=== PATIENT | female | born 1960 | race Caucasian/White ===

== ENCOUNTER → 2018-03-17 11:06 | Outpatient (CLI) | payer OTHER, SELFPAY ==
[2018-03-17 13:05] LABS: T4 Free Direct 1.27 ng/dL (0.76-1.46); Thyroid Stim Hormone (TSH) 0.23 uIU/mL (0.358-3.74)
== END ==
PROVIDERS: Family Provider Internal Medicine; PCP Internal Medicine; Visit Provider Internal Medicine
DX: E03.9 Hypothyroidism, unspecified (principal)
CPT/HCPCS: 36415; 84439; 84443

== ENCOUNTER → 2018-10-13 09:25 | Outpatient (CLI) | payer OTHER, SELFPAY ==
--- NOTE | 2018-10-13 09:32 | RAD_ITS ---
STUDY: X-RAY - RIGHT KNEE REASON FOR EXAM: Female, 58 years old. Chronic pain in both knees, now worsening. No known injury. TECHNIQUE: 4 view(s) of the knee. COMPARISON: None. FINDINGS: There is periarticular spurring of the femoral condyles. There is mild periarticular spurring of the tibial plateaus as well as spurring of the tibial spines. Normal visualized proximal fibula. Degenerative periarticular spurring seen at the apex and base of the patella. There is early cortical spurring at the patellar insertion of the quadriceps tendon. There is no demonstrated destructive osseous lesion or acute fracture. There is mild degenerative narrowing of the medial femorotibial compartment. Normal lateral femorotibial compartment. There is mild to moderate degenerative narrowing of the patellofemoral articulation. Normal proximal tibiofibular articulation. There is no demonstrated joint effusion. The soft tissue structures are unremarkable. RAD/Knee 4 or More Views IMPRESSION: Tricompartmental degenerative arthrosis of the knee, as described. Electronically Signed: Fredrick Ayala MD at 16:03 EST , Service support ,
--- NOTE | 2018-10-13 09:32 | RAD_ITS ---
STUDY: X-RAY - LEFT KNEE REASON FOR EXAM: Female, 58 years old. Pain TECHNIQUE: 4 view(s) of the knee. COMPARISON: None. FINDINGS: Normal visualized distal femur. Normal visualized proximal tibia and fibula. Normal proximal tibiofibular articulation. There is moderate degenerative arthrosis of the medial femorotibial compartment with moderate joint space narrowing. Normal lateral femorotibial compartment. Normal patellofemoral articulation. The soft tissue structures are unremarkable. RAD/Knee 4 or More Views IMPRESSION: Moderate medial compartment osteoarthritis. Electronically Signed: James Gaston MD at 4:28 EST Tel , Service support ,
--- NOTE | 2018-10-13 09:52 | RAD_ITS ---
STUDY: X-RAY - RIGHT TIBIA AND FIBULA REASON FOR EXAM: Female, 58 years old. Right calf pain worsening over last month. No known injury. TECHNIQUE: 2 view(s) of the tibia and fibula were obtained. COMPARISON: None. FINDINGS: There is degenerative periarticular spurring of the lateral tibial plateau and tibial spines. Degenerative particular spurring of the femoral condyles and base of the patella also noted. Normal visualized fibula. There is no demonstrated destructive osseous lesion or acute fracture. There is minor anterior superficial soft tissue swelling at the distal third of the lower leg. RAD/Tibia & Fibula 2 Views IMPRESSION: 1. Tricompartmental degenerative changes of the right knee. No acute osseous abnormality of the right lower leg. 2. Minor anterior superficial soft tissue swelling at the distal third of the lower leg. Electronically Signed: Fredrick Ayala MD at 16:02 EST , Service support ,
[2018-10-13 12:06] LABS: Absolute Lymphocyte Count 2.42 X10^3/ul (0.83-4.51); Absolute Neutrophil Count 2.3 X10^3/uL (2.0-7.7); Basophil# 0.02 X10^3/uL; Basophil% 0.4 % (0-1); Eosinophil# 0.16 X10^3/uL; Eosinophils% 3.1 % (0-5); Hematocrit 43.2 % (37-47); Hemoglobin 14.3 g/dl (12.0-15.0); Lymphocyte # 2.42 X10^3/ul (4.0); Lymphocyte % 46.4 % (19-41); Mean Corp Hgb Conc 33.1 g/gl (32-36); Mean Corpuscular Volume 90.8 fL (81-99); Mean Platelet Vol. 11.1 fl (6.2-12.0); Monocyte# 0.32 X10^3/uL; Monocyte% 6.1 % (0-10); Neutrophil # 2.28 X10^3/uL (2.7-7.7); Neutrophil % 43.8 % (47-70); POSITIVE COUNT NO; POSITIVE DIFFERENTIAL NO; POSITIVE MORPHOLOGY NO; Platelet Count 237 K/mm3 (150-450); RBC Distribution Width CV 13.4 % (11.6-14.6); RBC Distribution Width SD 44.5 fl (35.1-43.9); Red Blood Count 4.76 M/mm3 (4.2-5.4); White Blood Count 5.2 K/mm3 (4.4-11.0)
[2018-10-13 12:35] LABS: Progesterone Level 0.25 ng/mL (See Comment); Vitamin D,25 Hydroxy 27.2 ng/mL (29.95-100.01)
[2018-10-13 17:19] LABS: ALB/GLOB Ratio 0.9 RATIO (0.9-2.4); AST(SGOT) 26 U/L (15-37); Alanine Aminotransfer ALT/SGPT 50 U/L (13-56); Albumin, Serum 3.6 g/dL (3.2-5.0); Alkaline Phosphatase 95 U/L (45-117); Anion Gap 10 (5-15); BUN 19 mg/dL (7-18); BUN/Creat Ratio 32.8 RATIO (10-20); Calcium,Total 8.6 mg/dL (8.5-10.1); Chloride 107 mmol/L (98-107); Creatinine, Serum 0.58 mg/dL (0.55-1.02); EST Glomerular Filtration Rate 113 mL/min (>60); Est Glom Filt Rate - Afr Amer 137 mL/min (>60); Estradiol < 11.0 pg/mL; Globulin 3.9 g/dL (2.2-4.2); Glucose 82 mg/dL (74-106); Protein, Total 7.5 g/dL (6.4-8.2); Sodium Level 142 mmol/L (136-145); T4 Free Direct 1.36 ng/dL (0.76-1.46); Thyroid Stim Hormone (TSH) 0.15 uIU/mL (0.358-3.74)
[2018-10-15 03:05] LABS: DHEA Sulfate 49.2 ug/dL (29.4-220.5); Testosterone Free 0.9 pg/mL (0.0-4.2)
== END ==
PROVIDERS: Family Provider Internal Medicine; PCP Internal Medicine; Referring Provider Internal Medicine; Visit Provider Internal Medicine
DX: E03.9 Hypothyroidism, unspecified (principal); E55.9 Vitamin D deficiency, unspecified; E78.5 Hyperlipidemia, unspecified; R68.82 Decreased libido; M79.604 Pain in right leg; M25.561 Pain in right knee; M25.562 Pain in left knee
CPT/HCPCS: 36415; 73564; 73590; 80053; 80061; 82306; 82533; 82627; 82670; 83695; 83704; 84144; 84402; 84439; 84443; 84481; 85025; 82626

== ENCOUNTER → 2019-01-23 07:55 | Outpatient (CLI) | payer OTHER, SELFPAY ==
[2019-01-23 10:40] LABS: Vitamin D,25 Hydroxy 37.1 ng/mL (29.95-100.01)
[2019-01-23 11:06] LABS: Estradiol < 11.0 pg/mL; Ferritin 52 ng/mL (8-252); Free T3 2.7 pg/mL (2.18-3.98); T4 Free Direct 1.18 ng/dL (0.76-1.46); Thyroid Stim Hormone (TSH) 0.39 uIU/mL (0.358-3.74)
[2019-01-25 12:08] LABS: CHOLESTEROL TOTAL 182 mg/dL (100-199); HDL-C 63 mg/dL (>39); HDL-P TOTAL 40.9 umol/L (>=30.5); SMALL LDL-P 330 nmol/L (<=527); TRIGLYCERIDES 98 mg/dL (0-149)
[2019-01-25 15:42] LABS: INSULIN RESISTANCE SCORE 40 (<=45); LDL SIZE 20.9 nm (>20.5); LDL-C 99 mg/dL (0-99); LDL-P 1063 nmol/L (<1000)
[2019-01-26 17:38] LABS: DHEA Sulfate 48.7 ug/dL (29.4-220.5)
[2019-01-27 15:36] LABS: Anti-Thyroglobulin AB < 1.0 IU/mL (0.0-0.9); T3 Reverse 21.9 ng/dL (9.2-24.1); Thyroglobulin, Serum Qt. 6.7 ng/mL (1.5-38.5); Thyroid Peroxidase AB 17 IU/mL (0-34)
== END ==
PROVIDERS: Family Provider Internal Medicine; PCP Internal Medicine; Referring Provider Internal Medicine; Visit Provider Internal Medicine
DX: E03.9 Hypothyroidism, unspecified (principal); E78.5 Hyperlipidemia, unspecified; E34.9 Endocrine disorder, unspecified; E55.9 Vitamin D deficiency, unspecified
CPT/HCPCS: 36415; 80061; 82306; 82533; 82627; 82670; 82728; 83704; 84144; 84403; 84432; 84439; 84443; 84481; 84482; 86376; 86800; 82626

== ENCOUNTER → 2019-04-25 10:49 | Outpatient (CLI) | payer OTHER, SELFPAY ==
[2019-04-25 12:49] LABS: Free T3 3.4 pg/mL (2.18-3.98); T4 Free Direct 1.43 ng/dL (0.76-1.46); Thyroid Stim Hormone (TSH) 0.22 uIU/mL (0.358-3.74)
== END ==
PROVIDERS: Family Provider Internal Medicine; PCP Internal Medicine; Referring Provider Internal Medicine; Visit Provider Internal Medicine
DX: E03.9 Hypothyroidism, unspecified (principal)
CPT/HCPCS: 36415; 84439; 84443; 84481

== ENCOUNTER → 2019-08-17 13:26 | Outpatient (CLI) | payer OTHER, SELFPAY ==
[2019-08-17 16:14] LABS: T4 Free Direct 1.41 ng/dL (0.76-1.46); Thyroid Stim Hormone (TSH) 1.19 uIU/mL (0.358-3.74)
== END ==
PROVIDERS: Family Provider Internal Medicine; PCP Internal Medicine; Referring Provider Internal Medicine; Visit Provider Internal Medicine
DX: E03.9 Hypothyroidism, unspecified (principal)
CPT/HCPCS: 36415; 84439; 84443

== ENCOUNTER → 2019-12-31 14:27 | Outpatient (CLI) | payer OTHER, SELFPAY ==
[2019-12-31 18:03] LABS: Progesterone Level 9.51 ng/mL (See Comment)
[2019-12-31 18:10] LABS: Estradiol 13.1 pg/mL; T4 Free Direct 1.16 ng/dL (0.76-1.46)
[2020-01-14 14:47] LABS: Free T3 2.6 pg/mL (2.18-3.98)
== END ==
PROVIDERS: PCP Internal Medicine; Referring Provider Specialist; Visit Provider Specialist
DX: N95.1 Menopausal and female climacteric states (principal); R53.81 Other malaise; E03.8 Other specified hypothyroidism
CPT/HCPCS: 36415; 82627; 82670; 84144; 84403; 84439; 84443; 84481; 82626

== ENCOUNTER → 2020-03-18 16:47 | Outpatient (CLI) | payer OTHER, SELFPAY ==
--- NOTE | 2020-03-18 16:49 | CT_ITS ---
STUDY: CT CHEST WITH CONTRAST REASON FOR EXAM: Female, 59 years old. SUPRACLAVICULAR STELLA FULLNESS RIGHT SIDE -- LEFT SIDE ABD PAIN -- HX-HYPOTHYROIDISM RADIATION DOSAGE (If Supplied By Facility): CTDIvol = ( 12.61 ) mGy, DLP = ( 696.90 ) mGycm TECHNIQUE: Transaxial imaging was performed following intravenous administration of IV 100mL Isovue-300. Multiplanar coronal and sagittal images were reformatted. Individualized dose optimization techniques were used for this CT. COMPARISON: None. FINDINGS: There is evidence of bilateral breast implants. Small benign-appearing bilateral axillary lymph nodes. The lungs are normal. There is no demonstrated pleural abnormality. Normal heart and pericardium. Normal mediastinum. Normal hilar regions. Normal enhanced pulmonary arteries. Normal aorta arch and descending thoracic aorta. There are mild degenerative changes of the thoracic spine. There is no demonstrated abnormality of the visualized upper abdomen. CT/Chest WITH Contrast IMPRESSION: Normal enhanced CT Chest examination. Electronically Signed: Andre Ng, at 8:51 EDT , Service support ,
--- NOTE | 2020-03-18 17:01 | CT_ITS ---
STUDY: CT ABDOMEN WITH CONTRAST REASON FOR EXAM: Female, 59 years old. SUPRACLAVICULAR STELLA FULLNESS RIGHT SIDE -- LEFT SIDE ABD PAIN -- HX-HYPOTHYROIDISM RADIATION DOSAGE (If Supplied By Facility): CTDIvol = ( 12.61 ) mGy, DLP = ( 696.90 ) mGycm TECHNIQUE: Transaxial images were obtained post I.V. administration of IV 100mL Isovue-300, and without oral contrast. Sagittal and coronal images were reconstructed. Individualized dose optimization techniques were used for this CT. COMPARISON: None. FINDINGS: The visualized lung bases are unremarkable. The visualized portions of the heart are within normal limits. Normal liver. Normal gallbladder and extrahepatic biliary system. Normal spleen. Normal pancreas. Normal bilateral adrenal glands. Normal right kidney. Normal left kidney. Normal visualized stomach. Normal small intestine. Normal colon. The appendix is visualized and appears normal. Normal abdominal aorta. Normal inferior vena cava. Normal retroperitoneum. Normal abdominal wall. There are mild degenerative changes of the visualized lumbar spine. CT/Abdomen WITH IV Contrast IMPRESSION: No acute abnormality is seen. Electronically Signed: Andre Ng, at 8:50 EDT , Service support ,
[2020-03-18 17:20] LABS: CREATININE FINGERSTICK 0.8 mg/dL (0.55-1.02)
== END ==
PROVIDERS: PCP Internal Medicine; Referring Provider Internal Medicine; Visit Provider Internal Medicine
DX: R22.2 Localized swelling, mass and lump, trunk (principal); R10.9 Unspecified abdominal pain; E03.9 Hypothyroidism, unspecified
CPT/HCPCS: 71260; 74160; Q9967

== ENCOUNTER → 2020-08-28 10:53 | Outpatient (CLI) | payer OTHER, SELFPAY ==
[2020-08-28 13:22] LABS: Progesterone Level 5.38 ng/mL (See Comment)
[2020-08-28 13:40] LABS: Estradiol 50.1 pg/mL
== END ==
PROVIDERS: PCP Internal Medicine; Referring Provider Specialist; Visit Provider Specialist
DX: N95.1 Menopausal and female climacteric states (principal)
CPT/HCPCS: 36415; 82670; 84144; 84403

== ENCOUNTER 2020-09-14 12:59 | Emergency (ER) | payer OTHER, SELFPAY ==
[2020-09-14 13:01] VITALS: BP 135/84; PULSE 77; RESP 17; TEMP 36.1; O2SAT 95; BMI 31.7
--- NOTE | 2020-09-14 13:12 | CT_ITS ---
STUDY: CT CERVICAL SPINE WITHOUT CONTRAST REASON FOR EXAM: Female, 60 years old. WORSENING RT SHOULDER and arm PAIN/HX DDD RADIATION DOSAGE (If Supplied By Facility): CTDIvol = ( 23.52 ) mGy, DLP = ( 494.96 ) mGycm TECHNIQUE: High resolution transaxial imaging was performed without contrast material. Sagittal and coronal images were reconstructed. Individualized dose optimization techniques were used for this CT. COMPARISON: None FINDINGS: No definite acute fracture/dislocation. The cervical junction is intact. C1-C2 articulation is intact. There is reversal of curvature. There is normal alignment. Facet joints are intact at all levels bilaterally. No jumped facets. There is multilevel spondyloarthropathy. Multilevel degenerative disc disease seen. Multilevel loss of disc height. Multilevel posterior marginal osteophytes and disc bulges. Multilevel neural foraminal narrowing. Visualized paraspinal soft tissues and structures are unremarkable. CT/Spine Cervical without Contras IMPRESSION: There is no definite acute fracture/dislocation. Degenerative changes. Electronically Signed: Simone Andre MD at 14:00 EST , Service support ,
--- NOTE | 2020-09-14 13:15 | ED.DCSUM_ITS ---
History of Present Illness Chief Complaint: Upper Extremity Injury Informant: Patient Onset: Days Context: Gradual Onset Timing: Intermittent Current Severity: Moderate Maximum Severity: Severe Narrative: The patient is a 60-year-old female who is otherwise healthy the presents to the emergency department with neck pain and arm pain. Patient states she has a history of degenerative disease in her neck. She has seen pain management in the past. She has had cervical injections. She states that she has never had surgery on her neck. For the past month, she has been having some increasing pain. She did have a local injection of steroid which seemed to help. Over the past week, the pain has worsened. She states today, she had a burning pain from her trapezius down her tricep towards her hand. She has not had weakness. She did take a muscle relaxer, gabapentin, and [place] this morning. By the time she arrived here, she states her pain is better but she is still uncomfortable. She denies any trauma. She denies any chest pain or shortness of breath. Prior similar symptoms: Yes Recent Illness/Hospitalization: No Past Medical History - Allergies and Home Meds Allergies/Adverse Reactions: Allergies No Known Allergies Allergy (Verified 09/14/20 13:00) Primary Care Physician: Loco Dash MD [STAFF PHYSICIAN] - Prior records reviewed: Yes Past Medical History: None Surgical History: noncontributory Smoking Status: Never smoker Review of Systems General: Denies: Chills, Fever, Sweats Eyes: Denies: Visual changes - bilaterally, Diplopia ENT: Denies: Rhinorrhea, Sore throat Cardiovascular: Denies: Chest pain, Palpitations Respiratory: Denies: Dyspnea, Cough, Dyspnea on exertion Gastrointestinal: Denies: Abdominal pain, Nausea, Vomiting, Diarrhea, Melena, Hematochezia Genitourinary: Denies: Dysuria, Hematuria, Frequency Musculoskeletal: Reports: Neck pain. Denies: Back pain, Extremity Pain Skin: Denies: Rash, Wounds Neurological: Denies: Headache, Weakness, Numbness Physical Exam Vital Signs/Narrative: Vital Signs Temp Pulse Resp BP Pulse Ox 09/14/20 13:01 97.0 F L 77 17 135/84 H 95 Inital Vital Signs reviewed: Yes General: Well nourished, Well developed, No Acute Distress Head: Normocephalic, Atraumatic Eyes: Perrl, EOMI ENT: Moist mucous membranes, No rhinorrhea Neck: Supple, Nontender Cardiovascular: Regular rate, Regular rhythm, No murmurs Respiratory: No distress, CTA bilaterally, Chest nontender Abdomen: Soft, Nontender, Nondistended, Normal bowel sounds Back: Nontender, Normal Inspection Extremities: Nontender, No edema Skin: Normal color, No rash Neurological: Alert, Oriented x3, Cranial nerves II-XII grossly intact, Normal Strength, Normal Sensation Psychological: Normal affect, Normal Mood Diagnostic/Tx/Re-eval Clinical Impression(s) from Imaging Studies Cervical Spine CT 09/14/20 13:12 IMPRESSION: There is no definite acute fracture/dislocation. Degenerative changes. Electronically Signed: Simone Andre MD at 14:00 EST , Service support , - Medical Decision Making The patient has symptoms consistent with a cervical radiculopathy at the C7-C8 area. She has no weakness. She has normal reflexes and sensation of the upper extremity. She describes a burning, searing type pain. She has had symptoms in the past and has done well with injections. I did obtain noncontrast CT. this shows rather advanced degenerative disc changes without fracture. Clinically, I do feel that she likely has a cervical radiculopathy. She has no weakness. She has normal reflexes and pulses. Her pain is improved. At this point, I am going to treat her with a Medrol Dosepak and analgesics. She is comfortable with this plan of care. She does want to see a new pain management and I feel that that is reasonable. The patient will be discharged home. Impression 1. Cervical radiculopathy ED Disposition - Plan for ED Patient: Instructions: ED CERVICAL RADICULOPATHY Prescriptions: MethylPREDNISolone DosePak [Medrol DosePak] 4 mg PO UD #1 box Prescription Printed Oxycodone HCl/Acetaminophen [Percocet 5/325] 1 tab PO Q6H PRN PRN 3 Days #12 tab PRN Reason: Pain Prescription Printed Referrals: Loco Dash MD [STAFF PHYSICIAN] -
[2020-09-14] MEDS: Morphine 4 MG/ML Syringe IV (13:21)
[2020-09-14] MEDS: Ondansetron 4 MG/2 ML Vial IV (13:22)
[2020-09-14 14:15] VITALS: BP 130/83; PULSE 75; RESP 16; O2SAT 96
[2020-09-14] MEDS: MethylPREDNISolone 125 MG/2 ML Vial IV (14:19)
[2020-09-14] MEDS: HYDROmorphone 0.5 MG/0.5 ML SYRINGE IV (14:20)
[2020-09-14 14:30] VITALS: BP 123/64; PULSE 76; RESP 16; O2SAT 96
== END 2020-09-14 14:46 | disposition home or self-care (01) ==
LOC: ED 13:35
PROVIDERS: Emergency Provider Emergency Medicine; PCP Internal Medicine
DX: M54.12 Radiculopathy, cervical region (principal)
CPT/HCPCS: 72125; 96374; 96375; 99283; A4216; J2405

== ENCOUNTER → 2020-11-06 14:19 | Outpatient (CLI) | payer OTHER, SELFPAY ==
--- NOTE | 2020-11-06 14:36 | MRI_ITS ---
STUDY: MRI CERVICAL SPINE WITHOUT CONTRAST REASON FOR EXAM: Female, 60 years old. no trauma, numbness and tingling R hand, R 4th/5th digit completely numb TECHNIQUE: Standardized fat and water weighted pulse sequences were obtained in the sagittal and axial planes. COMPARISON: CT of the cervical spine 09/14/2020 FINDINGS: Normal foramen magnum and brainstem-cervical cord junction. Normal craniovertebral junction. Normal anterior atlantoaxial articulation. Normal odontoid process. Normal cervical lordosis. Normal vertebral bodies and posterior osseous elements. C2-3: Normal endplates. Normal disc height, signal and morphology. Normal central canal and intervertebral neural foramina. C3-4: Normal endplates. Normal disc height, signal and morphology. Normal central canal. Moderate to severe left neuroforaminal stenosis secondary to bony hypertrophy C4-5: Narrowed disc space and endplate spurring. Mild narrowing of the central canal. Severe right neuroforaminal stenosis and moderate narrowing on the left secondary to bony hypertrophy C5-6: Narrowed disc space and minor endplate spurring. Minor bulging disc osteophyte complex and tiny left posterolateral disc protrusion. Mild narrowing of the central canal on the left. Mild left neuroforaminal stenosis and moderate narrowing on the right secondary to bony hypertrophy C6-7: Normal endplates. Normal disc height, signal and minor bulging of the disc.. Normal central canal and intervertebral neural foramina. C7-T1: Normal endplates. Normal disc height, signal and tiny right posterolateral/foraminal disc/osteophyte protrusion. Normal central canal . Moderate right neuroforaminal encroachment.. Normal cervical cord. Normal visualized soft tissue structures. MRI/Spine Cervical (Routine) IMPRESSION: No evidence for acute fracture or other significant bony pathology. Moderate spondylosis and multilevel spinal stenosis secondary to disc disease and bony hypertrophy most severe at C4-5 and C5-6 greater on the right. . Findings as above Electronically Signed: Loco Orellana MD at 17:17 EST , Service support ,
== END ==
PROVIDERS: PCP Internal Medicine; Referring Provider Anesthesiology Pain Medicine; Visit Provider Anesthesiology Pain Medicine
DX: M50.30 Other cervical disc degeneration, unspecified cervical region (principal); M54.12 Radiculopathy, cervical region
CPT/HCPCS: 72141

== ENCOUNTER → 2020-12-01 10:27 | Outpatient (CLI) | payer OTHER, SELFPAY ==
[2020-12-01 12:33] LABS: Progesterone Level 4.24 ng/mL (See Comment)
[2020-12-01 12:39] LABS: Estradiol 67.7 pg/mL
== END ==
PROVIDERS: PCP Internal Medicine; Referring Provider Specialist; Visit Provider Specialist
DX: N95.1 Menopausal and female climacteric states (principal)
CPT/HCPCS: 36415; 82670; 84144; 84403

== ENCOUNTER → 2020-12-16 16:00 | Outpatient (CLI) | payer OTHER, SELFPAY ==
[2020-12-16 17:50] LABS: Absolute Lymphocyte Count 2.42 X10^3/uL (0.83-4.51); Basophil# 0.03 X10^3/uL; Basophil% 0.4 % (0-1); Eosinophil# 0.11 X10^3/uL; Eosinophils% 1.6 % (0-5); Hematocrit 46.8 % (37-47); Hemoglobin 15.7 g/dL (12.0-15.0); Lymphocyte # 2.42 X10^3/ul (4.0); Lymphocyte % 34.7 % (19-41); Mean Corp Hgb Conc 33.5 g/dL (32-36); Mean Corpuscular Hgb 31.4 pg (27.0-32.0); Mean Corpuscular Volume 93.6 fL (81-99); Monocyte# 0.42 X10^3/uL; NRBC Flagged by Analyzer 0 % (0-5); Neutrophil # 3.96 X10^3/uL (2.7-7.7); Neutrophil % 56.9 % (47-70); Platelet Count 253 K/mm3 (150-450); RBC Distribution Width CV 13.2 % (11.6-14.6); RBC Distribution Width SD 45.4 fl (35.1-43.9)
[2020-12-16 18:08] LABS: Vitamin B12 801 pg/mL (211-911)
[2020-12-16 18:45] LABS: Ferritin 44 ng/mL (8-252); Iron 81 ug/dL (50-170); Iron Binding Capacity,Total 309 ug/dL (250-450); PERCENT IRON SATURATION 26.2 % (15.0-55.0); T4 Free Direct 1.18 ng/dL (0.76-1.46); Thyroid Stim Hormone (TSH) 1.74 uIU/mL (0.358-3.74)
[2020-12-28 20:07] LABS: Testosterone, % Free 2.32 % (0.50-2.80); Testosterone, Free 7.73 ng/dL (0.10-0.85); Testosterone, Total 333 ng/dL (3-41)
[2020-12-29 07:30] LABS: Androstenedione 76 ng/dL (17-99); Sex Hormone-binding Globulin 70.9 nmol/L (17.3-125.0); Zinc, Plasma or Serum 74 ug/dL (44-115)
== END ==
PROVIDERS: PCP Internal Medicine; Referring Provider Dermatology; Visit Provider Dermatology
DX: D22.62 Melanocytic nevi of left upper limb, including shoulder (principal); L65.9 Nonscarring hair loss, unspecified; L65.0 Telogen effluvium
CPT/HCPCS: 36415; 82157; 82306; 82607; 82627; 82652; 82728; 82746; 83540; 83550; 84270; 84402; 84403; 84439; 84443; 84630; 85025; 86038; 82626

== ENCOUNTER 2021-07-07 15:00 | Outpatient (RCR) | payer OTHER, SELFPAY ==
--- NOTE | 2021-03-17 12:54 | HP.PTEVAL ---
Patient's Visit Information DAT TREADWELL is a 60 year old F referred to Physical Therapy by Dr. Loco Dash MD with a diagnosis of Cervical radiculopathy, RUE. Date of Evaluation: 03/09/21 Physical Therapist: Chet Bhakta DPT - Visit Plan Frequency: 2-3x /Week Duration: 4-6 Weeks Plan: Start with progressive retraction of cervical spine, postural strengthening progression. Pt. had gym at home, progress HEp as able. May use DN and/or manual techniques to reduce symptoms as needed. - Subjective Pt. is here today for her initial evaluation with diagnosis of cervicalgia and cervical radiculopathy. Pt. reports having increased pain in September of 2020. She reports having terrible pain for a few weeks, prior to having an injection. She had a cervical injections which have helped. Pt. is having improved N/T in her RUE, but still has N/T in the 4/5 fingers. She reports no strength loss in either hand, but reports overall weaker over the past few years. Pt. is sleeping okay without issues. She reports her symptoms have stayed the same over the past few months. She was visiting her daughter in [place] for the past 3 months. She is hopeful to increase her strength in order to reduce her symptoms from coming back. - Pain Cervical spine Pain Intensity (Out of 10): 0 Pain Intensity Range: 0, 2 RUE Pain Intensity (Out of 10): 0 Pain Intensity Range: 0, 2 - Objective POSTURE: Pt. has decent posture in stance. She FH posture, slight rounded shoulders, but able to correct with VCing. Difficulty maintaining. PALPATION: pt. has tenderness at B UT. No issues spring testing, hypomobility noted. NEURO: Pt. reports increased N/T in R 4th and 5th digits, but normal sensation to touch. Pt. has normal DTR of biceps and triceps of BUes. ROM: Pt. has normal UE ROM bilat without increase in symptoms. CERVICAL ROM: extension mod loss increase NW, rest with in normal ROM. MMT: 5/5 throughout. Pt. does have some postural weakness. - Goals Goal 1:: LTG: Pt. to be I with HEP and gym exercises. Goal Time Frame: 4-6 Weeks Goal 2:: STG: pt. to have increased cervical extension to atleast min loss without increase in symptoms. Goal Time Frame: 2-4 Weeks Goal 3:: LTG: Pt. to have increased postural strength indicated by improved postural control throughout therapy session. Goal Time Frame: 4-6 Weeks Goal 4:: STG: Pt. to report decreased tingling in R 4th and 5th fingers by 50%. Goal Time Frame: 2-4 Weeks Goal 5:: LTG: pt. to have no N/T in RUE. Goal Time Frame: 4-6 Weeks - Rehabilitation Potential Physical Therapy Diagnosis: Pt. has signs and symptoms consistent with R sided cervical radiculopathy. Pt. has had improvement of symptoms since having an injection. She still has some tingling in the 4th and 5th digits of her RUE, but overall minimal pain. I would like to work on some postural strengthening and re introducing gym exercises. Rehabilitation Potential: Excellent - Anticipated Interventions Patient/Client Instruction: Educate patient on: Condition, Plan of Care, Risk Factors, Benefits of Fitness Program For the Purpose of:: To improve self management, To prevent re-injury, To improve ability to perform tasks related to life management, To improve tolerance to ADL's Therapeutic Exercise to Include: Strength training, Power training, Postural training, Flexibilty training, Passive ROM, Active ROM, Roula Exercises, Scapular Strength/Stabilization For the Purpose of:: To decrease pain, To decrease swelling/inflammation, To increase ROM, To improve nutrient delivery to tissue, To increase oxygenation perfusion, To improve muscle performance and motor function, To improve ability to perform ADL's, To improve health of tissue, To decrease soft tissue restriction Manual Therapy Techniques to Include: Mobilization, Functional dry needling, Soft tissue mobilization Comment: manual traction For the Purpose of:: To decrease pain, To increase ROM, To improve nutrient delivery to tissue, To increase oxygenation perfusion, To improve muscle performance and motor function, To decrease soft tissue restriction, To increase flexibility/ROM Thank you for the opportunity to evaluate your patient. For Medicare and Medicare HMO plans, please review the plan of care and approve it. It will need to be FAXED BACK to us at [phone] for Medicare purposes. For Medicare only, by signing this I certify the plan of care. Please let me know if there are questions or concerns regarding this plan of care. Physician Signature: Date:
--- NOTE | 2021-05-25 13:38 | HP.PTREVAL ---
Dr. Loco Dash MD, It has been my pleasure to treat DAT TREADWELL over the last 10 visits for Cervical radiculopathy, RUE. Please see the progress note below for an update on the physical therapy plan of care! Subjective: Pt. reports being 85% better overall. Pt. reports having decreased symptoms overall. No neck pain, but still has tingling in the tips of her fingers. Objective/Function: Pt. is overall doing well. She has increased stability and strength throughout. She is having some tingling, but overall 85 % better. I would lik e her to get back to all of her exercises independently. Pt. consents. Pt. to trial exercises for x2 weeks independently. Pt. consents. She has HEP for her B UE and trunk stability with gym exercises. Pt. has good thoracic and cervical ROM. She is still having some tingling in the tips of her fingers, but is overall much better. She reports having concerns about her pain coming back if she stops PT. I told her if she is consistent with her exercises the risk is reduced, but I can not say they will ever back. Pt. reports under standing. Plan Plan: Pt. to trial exercises on own for 2 weeks to see if she can self manage. Pt. consents. Balance/Gait/Functional tests - Balance/Special Test Scores Oswestry Neck Score: 8 Goals Goal 1:: LTG: Pt. to be I with HEP and gym exercises. Goal Time Frame: 4-6 Weeks Goal Progress: Goal Met Goal 2:: STG: pt. to have increased cervical extension to atleast min loss without increase in symptoms. Goal Time Frame: 2-4 Weeks Goal Progress: Goal Met Goal 3:: LTG: Pt. to have increased postural strength indicated by improved postural control throughout therapy session. Goal Time Frame: 4-6 Weeks Goal Progress: Goal Met Goal 4:: STG: Pt. to report decreased tingling in R 4th and 5th fingers by 50%. Goal Time Frame: 2-4 Weeks Goal Progress: Progressing Goal 5:: LTG: pt. to have no N/T in RUE. Goal Time Frame: 4-6 Weeks Goal Progress: Progressing Anticipated Interventions Patient/Client Instruction: Educate patient on: Condition, Plan of Care, Risk Factors, Benefits of Fitness Program For the Purpose of:: To improve self management, To prevent re-injury, To improve ability to perform tasks related to life management, To improve tolerance to ADL's Therapeutic Exercise to Include: Strength training, Power training, Postural training, Flexibilty training, Passive ROM, Active ROM, Roula Exercises, Scapular Strength/Stabilization For the Purpose of:: To decrease pain, To decrease swelling/inflammation, To increase ROM, To improve nutrient delivery to tissue, To increase oxygenation perfusion, To improve muscle performance and motor function, To improve ability to perform ADL's, To improve health of tissue, To decrease soft tissue restriction Manual Therapy Techniques to Include: Mobilization, Functional dry needling, Soft tissue mobilization Comment: manual traction For the Purpose of:: To decrease pain, To increase ROM, To improve nutrient delivery to tissue, To increase oxygenation perfusion, To improve muscle performance and motor function, To decrease soft tissue restriction, To increase flexibility/ROM Please do not hesitate to contact me at [phone] by phone or if you have questions or concerns regarding this new plan of care! Sincerely, Chet Bhakta DPT
--- NOTE | 2021-09-16 11:19 | HP.PT.NRP ---
DAT TREADWELL was seen in my office for initial evaluation on 03/09/21. The following Plan of Care was established for this patient: Initial Frequency: 2-3x /Week Initial Duration: 4-6 Weeks Patient/Client Instruction: Educate patient on: Condition, Plan of Care, Risk Factors, Benefits of Fitness Program For the Purpose of:: To improve self management, To prevent re-injury, To improve ability to perform tasks related to life management, To improve tolerance to ADL's Therapeutic Exercise to Include: Strength training, Power training, Postural training, Flexibilty training, Passive ROM, Active ROM, Roula Exercises, Scapular Strength/Stabilization For the Purpose of:: To decrease pain, To decrease swelling/inflammation, To increase ROM, To improve nutrient delivery to tissue, To increase oxygenation perfusion, To improve muscle performance and motor function, To improve ability to perform ADL's, To improve health of tissue, To decrease soft tissue restriction Manual Therapy Techniques to Include: Mobilization, Functional dry needling, Soft tissue mobilization Comment: manual traction For the Purpose of:: To decrease pain, To increase ROM, To improve nutrient delivery to tissue, To increase oxygenation perfusion, To improve muscle performance and motor function, To decrease soft tissue restriction, To increase flexibility/ROM This patient was last seen in our office 04/27/21. Pertinent comments regarding their Physical therapy will appear below: Pt. was seen for her neck pain. Pt. has not been seen in several months and will be DC from PT at this point in time. At this point I will be discontinuing this patient from physical therapy. I would be happy to see this patient again in the future if found appropriate by the physician. Thank you! Chet Bhakta, ANSELMOT Balance/Gait/Functional tests - Balance/Special Test Scores Oswestry Neck Score: 8
== END 2021-07-07 19:00 | disposition home or self-care (01) ==
LOC: PT 15:00
PROVIDERS: PCP Internal Medicine; Referring Provider Anesthesiology Pain Medicine; Visit Provider Anesthesiology Pain Medicine
DX: M25.562 Pain in left knee (principal); M25.561 Pain in right knee
CPT/HCPCS: 97110; 97161

== ENCOUNTER → 2021-07-08 15:02 | Outpatient (CLI) | payer OTHER, SELFPAY ==
[2021-07-08 19:10] LABS: T4 Free Direct 1.24 ng/dL (0.76-1.46); Thyroid Stim Hormone (TSH) 1.15 uIU/mL (0.358-3.74)
== END ==
PROVIDERS: PCP Internal Medicine; Referring Provider Internal Medicine; Visit Provider Internal Medicine
DX: E03.9 Hypothyroidism, unspecified (principal)
CPT/HCPCS: 36415; 84439; 84443

== ENCOUNTER 2021-12-10 13:03 | Outpatient (CLI) | payer OTHER, SELFPAY ==
[2021-12-10 15:28] LABS: Absolute Lymphocyte Count 2.62 X10^3/uL (0.83-4.51); Absolute Neutrophil Count 3.5 X10^3/uL (2.0-7.7); Basophil# 0.04 X10^3/uL; Basophil% 0.6 % (0-1); Eosinophil# 0.12 X10^3/uL; Eosinophils% 1.8 % (0-5); Hematocrit 44.3 % (37-47); Hemoglobin 14.8 g/dL (12.0-15.0); Lymphocyte # 2.62 X10^3/ul (0.83-4.51); Lymphocyte % 38.4 % (19-41); Mean Corp Hgb Conc 33.4 g/dL (32-36); Mean Corpuscular Hgb 31.2 pg (27.0-32.0); Mean Corpuscular Volume 93.3 fL (81-99); Mean Platelet Vol. 11.9 fl (6.2-12.0); Monocyte% 7.3 % (0-10); NRBC Flagged by Analyzer 0 % (0-5); Neutrophil # 3.52 X10^3/uL (2.7-7.7); Neutrophil % 51.6 % (47-70); Platelet Count 260 K/mm3 (150-450); RBC Distribution Width CV 12.8 % (11.6-14.6); RBC Distribution Width SD 43.8 fl (35.1-43.9); Red Blood Count 4.75 M/mm3 (4.2-5.4); White Blood Count 6.8 K/mm3 (4.4-11.0)
[2021-12-10 15:54] LABS: ALB/GLOB Ratio 0.9 RATIO (0.9-2.4); AST(SGOT) 51 U/L (15-37); Alanine Aminotransfer ALT/SGPT 96 U/L (13-56); Albumin, Serum 3.6 g/dL (3.2-5.0); Alkaline Phosphatase 84 U/L (45-117); Anion Gap 6 (5-15); BUN 19 mg/dL (7-18); BUN/Creat Ratio 29.1 RATIO (10-20); Calcium,Total 8.8 mg/dL (8.5-10.1); Chloride 104 mmol/L (98-107); Cholesterol 238 mg/dL (200); Creatinine, Serum 0.65 mg/dL (0.55-1.02); EST Glomerular Filtration Rate 98 mL/min (>60); Est Glom Filt Rate - Afr Amer 118 mL/min (>60); Glucose 92 mg/dL (74-106); High Density Lipoprotein 57 mg/dL; Potassium 4.1 mmol/L (3.5-5.1); Protein, Total 7.6 g/dL (6.4-8.2); Sodium Level 137 mmol/L (136-145); T4 Free Direct 1.31 ng/dL (0.76-1.46); Thyroid Stim Hormone (TSH) 2.11 uIU/mL (0.358-3.74); Triglycerides 307 mg/dL; Very Low Density Lipoprotein 61 mg/dL (5-40)
== END 2021-12-10 23:59 | disposition home or self-care (01) ==
LOC: BIMLAB 13:04
PROVIDERS: PCP Internal Medicine; Referring Provider Internal Medicine Endocrinology, Diabetes & Metabolism; Visit Provider Internal Medicine Endocrinology, Diabetes & Metabolism
DX: E03.8 Other specified hypothyroidism (principal); E06.3 Autoimmune thyroiditis; E55.9 Vitamin D deficiency, unspecified
CPT/HCPCS: 36415; 80053; 80061; 82306; 84439; 84443; 85025

== ENCOUNTER 2021-12-15 12:24 | Outpatient (CLI) | payer OTHER, SELFPAY ==
--- NOTE | 2021-12-15 12:29 | BD_ITS ---
STUDY: DUAL ENERGY X-RAY ABSORPTIOMETRY / DXA REASON FOR EXAM: Female, 61 years old. SCREEN TECHNIQUE: Bone Mineral Density (BMD) measurements of lumbar spine and bilateral hips were obtained. COMPARISON: Comparison is made with prior study dated 09/06/2013. FINDINGS: Lumbar Spine (L1-L4): g/cm2 (1.026) / T-score (-0.2) / Z-score (1.4) Findings are suggestive of normal bone density with a low fracture risk. Left Femur Total: g/cm2 (0.984) / T-score (0.3) / Z-score (1.4) Left Femoral Neck: g/cm2 (0.808) / T-score (-0.4) / Z-score (1.0) Right Femur Total: g/cm2 (0.950) / T-score (0.1) / Z-score (1.1) Right Femoral Neck: g/cm2 (0.749) / T-score (-0.9) / Z-score (0.5) The T-Scores on the most recent prior examination were: Lumbar Spine (L1-L4): There has been worsening of bone density since the previous examination. Left Femur Total: which represents a worsening of 2.3%. Right Femur Total: which represents a worsening of 2.5%. BD/Dexa Bone Density Study IMPRESSION: The patient is considered normal as outlined below according to World Michele Organization (WHO) criteria with a low fracture risk. There has been worsening of bone density since the previous examination. Reference Information: The T-score is the number of standard deviations above or below the standard which is normal for young adults at their peak bone mineral density. The World Health Organization (WHO) interprets the T-scores as follows: Above -1 Normal bone density Between -1 and -2.5 Osteopenia Equal to / or below -2.5 Osteoporosis As a practical clinical guideline, osteopenia may be graded as follows: Mild -1 through -1.5 Moderate -1.6 through -2.0 Severe -2.1 through -2.4 The Z-score is the number of standard deviations above or below age-matched controls. A Z-score of less than -1.5 would be considered abnormal. References: 1. NIH Osteoporosis and Related Bone Diseases www osteo.org 2. International Society for Clinical Densitometry www iscd.org 3. National Osteoporosis Foundation www nof.org Electronically Signed: Andre Ng MD at 13:21 EST ,
== END 2021-12-15 23:59 | disposition home or self-care (01) ==
LOC: OPBD 12:25
PROVIDERS: PCP Internal Medicine; Referring Provider Internal Medicine Endocrinology, Diabetes & Metabolism; Visit Provider Internal Medicine Endocrinology, Diabetes & Metabolism
DX: Z13.820 Encounter for screening for osteoporosis (principal); M85.852 Other specified disorders of bone density and structure, left thigh; M85.851 Other specified disorders of bone density and structure, right thigh
CPT/HCPCS: 77080

== ENCOUNTER 2022-01-07 10:48 | Outpatient (CLI) | payer OTHER, SELFPAY ==
--- NOTE | 2022-01-07 10:54 | RAD_ITS ---
STUDY: X-RAY - LEFT HAND REASON FOR EXAM: Female, 61 years old. Pain. TECHNIQUE: 3 view(s) of the hand. COMPARISON: None. FINDINGS: Osteopenia. Moderate arthrosis of the radiocarpal articulation. Mild arthrosis of the radial ulnar articulation. Moderate arthrosis of the radiocarpal row the wrist. Moderate arthrosis of the first CMC joint. Moderate arthrosis of the MCP and IP joints. The soft tissue structures are unremarkable. RAD/Hand Min 3 Views IMPRESSION: Osteopenia with osteoarthritic changes. No acute abnormality. Electronically Signed: Adithya Luong MD at 12:05 EDT ,
--- NOTE | 2022-01-07 10:54 | RAD_ITS ---
STUDY: X-RAY - RIGHT HAND REASON FOR EXAM: Female, 61 years old. Pain in both hands and fingers. TECHNIQUE: 3 view(s) of the hand. COMPARISON: None. FINDINGS: Osteopenia. Mild arthrosis of the radiocarpal articulation. Mild arthrosis of the radioulnar articulation. Moderate arthrosis of the radial carpal row of the wrist. Cystic changes of the lunate and hamate. Moderate arthrosis of the first CMC joint. Moderate arthrosis of the MCP and IP joints. The soft tissue structures are unremarkable. RAD/Hand Min 3 Views IMPRESSION: Osteopenia with osteoarthritic changes as described. No acute osseous abnormality. Electronically Signed: Adithya Luong MD at 12:02 EDT ,
--- NOTE | 2022-01-07 10:54 | RAD_ITS ---
STUDY: X-RAY - LEFT KNEE REASON FOR EXAM: Female, 61 years old. Pain. TECHNIQUE: 2 view(s) of the knee. COMPARISON: None. FINDINGS: Osteopenia. Superior patellar spur. Moderate medial compartmental arthrosis. Mild arthrosis of the lateral compartment. Moderate arthrosis of the patellofemoral compartment. The soft tissue structures are unremarkable. RAD/Knee 1 or 2 Views IMPRESSION: Osteopenia with superior patellar spur and tricompartmental arthrosis. No acute finding. Electronically Signed: Adithya Luong MD at 11:57 EDT ,
[2022-01-07 12:49] LABS: Hepatitis B Surface Antibody Reactive
[2022-01-07 13:02] LABS: AST(SGOT) 19 U/L (15-37); Alanine Aminotransfer ALT/SGPT 36 U/L (13-56); Albumin, Serum 3.8 g/dL (3.2-5.0); Alkaline Phosphatase 76 U/L (45-117); Bilirubin, Direct 0.12 mg/dL (0.00-0.30); Ferritin 73 ng/mL (8-252); GGTP 15 U/L (5-55); Globulin 3.8 g/dL (2.2-4.2); Protein, Total 7.6 g/dL (6.4-8.2); Triglycerides 115 mg/dL
[2022-01-08 13:08] LABS: Ceruloplasmin 26.8 mg/dL (19.0-39.0); HEPATITIS B SURFACE AG Negative (Negative); Hepatitis A IgM Antibody Negative (Negative); Hepatitis B Core AB IgM Negative (Negative); Transferrin 224 mg/dL (192-364)
[2022-01-08 15:47] LABS: Anti-Smooth Muscle ABS 12 Units (0-19); CMV Acute Antibody IgM < 30.0 AU/mL (0.0-29.9); Hep C Antibodies <0.1 s/co ratio (0.0-0.9); Hepatitis A AB, Total Negative (Negative)
[2022-01-08 15:48] LABS: ANTINUCLEAR ANTIBODIES DIRECT Negative (Negative); Anti-Mitochondrial AB <20.0 Units (0.0-20.0)
== END 2022-01-07 23:59 | disposition home or self-care (01) ==
PROVIDERS: PCP Internal Medicine; Referring Provider Internal Medicine; Visit Provider Internal Medicine
DX: M79.641 Pain in right hand (principal); M79.642 Pain in left hand; R74.8 Abnormal levels of other serum enzymes; E78.1 Pure hyperglyceridemia; R35.0 Frequency of micturition; M25.562 Pain in left knee
CPT/HCPCS: 36415; 73130; 73560; 80074; 80076; 82390; 82728; 82977; 83516; 84466; 84478; 86038; 86645; 86706; 86708

== ENCOUNTER 2022-01-16 10:51 | Outpatient (CLI) | payer OTHER, SELFPAY ==
--- NOTE | 2022-01-16 10:54 | US_ITS ---
STUDY: ABDOMINAL ULTRASOUND - RIGHT UPPER QUADRANT REASON FOR VISIT: Female, 61 years old, elevated liver enzymes. TECHNIQUE: Ultrasound evaluation of the right upper quadrant was performed with real-time and static bonner-scale imaging. TECHNICAL QUALITY: Limited. Examination limited by bowel gas. COMPARISON: None. FINDINGS: Liver: The liver measures 13.5 cm. There is a heterogeneous echogenicity of the liver. The bile ducts are within normal limits. There is hepatic color flow. The direction of portal flow is hepatopetal. There is no demonstrated mass lesion. Gallbladder: Normal distended gallbladder. The gallbladder wall measures 1.8 mm. There is a negative sonographic Henson''s sign. There is no pericholecystic fluid. There is mild biliary sludge dependent within the gallbladder. There is comet tail artifact in the anterior wall of the gallbladder which may represent adenomyomatosis. Common Bile Duct (C.B.D.): The common bile duct measures 3.5 mm. Pancreas: The pancreas as seen on this examination is grossly unremarkable but suboptimally visualized. There is increased echogenicity of the pancreas. There is no demonstrated pancreatic mass or cyst. Right Kidney: Normal size of the right kidney. The right kidney measures 11.2 cm. Normal renal cortex. The right cortex measures 1.3 cm. There is no demonstrated renal mass or cyst. There is no right hydronephrosis. US/Liver IMPRESSION: 1. Somewhat heterogeneous liver which may reflect fatty infiltration or hepatocellular disease. 2. Mild sludge in the gallbladder without evidence of gallstones. Electronically Signed: Rm Sloan MD at 14:41 EDT ,
== END 2022-01-16 23:59 | disposition home or self-care (01) ==
LOC: US 10:52
PROVIDERS: PCP Internal Medicine; Referring Provider Internal Medicine; Visit Provider Internal Medicine
DX: R74.8 Abnormal levels of other serum enzymes (principal)
CPT/HCPCS: 76705

== ENCOUNTER 2022-02-05 13:00 | Outpatient (RCR) | payer OTHER, SELFPAY ==
--- NOTE | 2021-12-22 13:25 | HP.PTEVAL_ITS ---
Patient's Visit Information DAT TREADWELL is a 61 year old F referred to Physical Therapy by Dr. Loco Dash MD with a diagnosis of Cervical disc degeneration, and Cervical radiculopathy. Date of Evaluation: 12/22/21 Physical Therapist: Chet Bhakta DPT - Visit Plan Frequency: 2-3x /Week Duration: 6 Weeks Plan: Start with manual to B UT, B levator scapulae. DN to same regions. Progress thoracic and cervical stability exercises to HEP as tolerated. - Subjective Pt. is here today for her initial evaluation with diagnosis of Cervical disc degeneration, and Cervical radiculopathy. Pt. has been having symptoms for 1-2 years intermittently. She reports pain in neck that radiates down arm to hand at times. She was out in [place] helping daughter and was having increased symptoms with lifting and with recreational activities. No mech of injury in general. Pt. has stopped doing exercises secondary to overall symptoms. She has had injections in the past with good results. Pt. is having trouble with sleeping and has N/T in R hand with waking up in AM. 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 Pt. is hopeful to reduce symptoms and be able to complete all work/recreational activities without limitations. - Pain R side of cervical spine Pain Intensity (Out of 10): 2 Pain Intensity Range: 0, 5 R hand Pain Intensity (Out of 10): 1 Pain Intensity Range: 0, 3 Comment: mostly tingling - Objective POSTURE: Pt. has decent posture in stance. Normal head posture, slightly FH. She has slight increase in thoracic kyphosis, but minimally. PALPATION: Pt. has increased tenderness at B cervical erector spinea, R worse than L. Pt. has tightness in B UT and cervical erector spinea. NEURO: Pt. has normal DTR of BUEs, normal sensation in BUEs, but does complain of numbness at 4th/5th finge rs. ROM: CERVICAL SPINE: Pt. has slight lack of extension and rotation bilaterally. Pt. has normal shoulder ROM without symptoms. She has slight increase in symptoms with extension. MMT: Pt. has normal strength of BUEs, slight decreased deep neck flexor strength (endurance) as seen in reduced time to 14sec with deep neck flexor testing. Iso neck flexors 5/5, shoulder strength ~20# throughout deltoid bilaterally. - Special Tests C/S Radiculapathy - Right Upper limb tension test: Negative C/S Radiculapathy - Left Spurlings: Negative C/S Radiculapathy - Right Spurlings: Positive C/S Radiculapathy - Left Cervical distraction: Negative C/S Radiculapathy - Right Relief test: Positive Cervical Sitting: Protrusion - Mechanical Response: No effect Cervical Sitting: Protrusion - Symptoms During Testing: No effect Cervical Sitting: Protrusion - Symptoms After Testing: No effect Cervical Sitting: Retraction - Mechanical Response: No effect Cervical Sitting: Retraction - Symptoms During Testing: Abolishes Cervical Sitting: Retraction - Symptoms After Testing: No worse Cervical Sitting: Retraction-Extension - Mechanical Response: No effect Cerv Sitting: Retraction-Extension - Symptoms During Testing: Decreases Cerv Sitting: Retraction-Extension - Symptoms After Testing: No better Cervical Sitting: Sidebend Right - Mechanical Response: No effect Cervical Sitting: Sidebend Right - Symptoms During Testing: No effect Cervical Sitting: Sidebend Right - Symptoms After Testing: No effect Cervical Sitting: Sidebend Left - Mechanical Response: No effect Cervical Sitting: Sidebend Left - Symptoms During Testing: No effect Cervical Sitting: Sidebend Left - Symptoms After Testing: No effect Cervical Sitting: Rotation Right - Mechanical Response: No effect Cervical Sitting: Rotation Right - Symptoms During Testing: No effect Cervical Sitting: Rotation Right - Symptoms After Testing: No effect Cervical Sitting: Rotation Left - Mechanical Response: No effect Cervical Sitting: Rotation Left - Symptoms During Testing: No effect Cervical Sitting: Rotation Left - Symptoms After Testing: No effect Cervical Sitting: Flexion - Mechanical Response: No effect Cervical Sitting: Flexion - Symptoms During Testing: Increases Cervical Sitting: Flexion - Symptoms After Testing: No worse - Balance/Special Test Scores Oswestry Neck Score: 21 - Goals Goal 1:: LTG: Pt. to be I with HEP for thoracic/cervical stability exercises. Goal Time Frame: 4-6 Weeks Goal 2:: STG: pt. to have decreased N/T in R 4th/5th digits of RUE by 50%. Goal Time Frame: 2 Weeks Goal 3:: STG: Pt. to sleep throughout the night without increase in symptoms. Goal Time Frame: 2 Weeks Goal 4:: LTG: Pt. to reports 0-2/10 pain in cervical spine and RUE allowing for increased tolerance to all work and recreational activities. Goal Time Frame: 4-6 Weeks Goal 5:: LTG: Pt. to have increased B deltoid and UT strength to at least 30# throughout. Goal Time Frame: 4-6 Weeks - Rehabilitation Potential Physical Therapy Diagnosis: Pt. has signs and symptoms consistent with Cervical disc degeneration, and Cervical radiculopathy. Pt. has marked increased muscle guarding/tone, decreased cervical extension and thoracic and cervical weakness. Rehabilitation Potential: Excellent - Anticipated Interventions Patient/Client Instruction: Educate patient on: Condition, Plan of Care, Risk Factors For the Purpose of:: To improve decision making, To facilitate caregiver knowledge, To improve self management, To prevent re-injury, To improve ability to perform tasks related to life management, To improve tolerance to ADL's Therapeutic Exercise to Include: Strength training, Power training, Endurance training, Body mechanics, Postural training, Flexibilty training, Gait and locomotor training, Passive ROM, Active ROM, Roula Exercises, Scapular Strength/Stabilization For the Purpose of:: To decrease pain, To decrease swelling/inflammation, To increase ROM, To improve nutrient delivery to tissue, To increase oxygenation perfusion, To improve muscle performance and motor function, To improve ability of physical actions for home/community/work/leisure, To improve gait and locomotor functions, To improve health of tissue, To decrease soft tissue restriction Manual Therapy Techniques to Include: Massage, Mobilization, Functional dry needling, Soft tissue mobilization For the Purpose of:: To decrease pain, To decrease swelling/inflammation, To increase ROM, To improve nutrient delivery to tissue, To increase oxygenation perfusion, To improve muscle performance and motor function, To improve ability to perform ADL's Thank you for the opportunity to evaluate your patient. For Medicare and Medicare HMO plans, please review the plan of care and approve it. It will need to be FAXED BACK to us at [phone] for Medicare purposes. For Medicare only, by signing this I certify the plan of care. Please let me know if there are questions or concerns regarding this plan of care. Physician Signature: Date:
--- NOTE | 2022-04-14 10:31 | HP.PTREVAL ---
Dr. Loco Dash MD, It has been my pleasure to treat DAT TREADWELL over the last 11 visits for Cervical disc degeneration, and Cervical radiculopathy. Please see the progress note below for an update on the physical therapy plan of care! Subjective: Pt. reports overall doing better. ~50% better overall. pt. repots some mild soreness, but no radiating pain. Mild N/T in her R 4th/5th digits. Objective/Function: Cervical ROM: ext mod loss, flexion nil loss, rotation R min/nil loss (mild increase NW), rotation L min/nil loss. Normal B shoulder ROM, except flexion 150deg/ea. without increase in symptoms. Thoracic ROM: mod loss rotation and extension noted. MMT: B shoulders: 5/5 throughout, mid trap 4+/5, rhomboids 4+/5, UT 4+/5. CERVICAL SPINE: 4/5 deep neck flexors. Pt. is sleeping okay with overall reduced muscle relaxors taken. Pt. is progressing, but needs to be more consistent with gym exercises on own. I did talk to her about progressing more I exercises. Pt. consents. Plan Plan: I am recerting her for increased strengthening of thoracic/cervical spine, and increasing flexibility of thoracic and cervical spine. Balance/Gait/Functional tests - Balance/Special Test Scores Oswestry Neck Score: 21 Goals Goal 1:: LTG: Pt. to be I with HEP for thoracic/cervical stability exercises. Goal Time Frame: 4-6 Weeks Goal Progress: Progressing Goal 2:: STG: pt. to have decreased N/T in R 4th/5th digits of RUE by 50%. Goal Time Frame: 2 Weeks Goal Progress: Progressing Goal 3:: STG: Pt. to sleep throughout the night without increase in symptoms. Goal Time Frame: 2 Weeks Goal Progress: Goal Met Goal 4:: LTG: Pt. to reports 0-2/10 pain in cervical spine and RUE allowing for increased tolerance to all work and recreational activities. Goal Time Frame: 4-6 Weeks Goal Progress: Progressing Goal 5:: LTG: Pt. to have increased B deltoid and UT strength to at least 30# throughout. Goal Time Frame: 4-6 Weeks Goal Progress: Progressing Anticipated Interventions Patient/Client Instruction: Educate patient on: Condition, Plan of Care, Risk Factors For the Purpose of:: To improve decision making, To facilitate caregiver knowledge, To improve self management, To prevent re-injury, To improve ability to perform tasks related to life management, To improve tolerance to ADL's Therapeutic Exercise to Include: Strength training, Power training, Endurance training, Body mechanics, Postural training, Flexibilty training, Gait and locomotor training, Passive ROM, Active ROM, Roula Exercises, Scapular Strength/Stabilization For the Purpose of:: To decrease pain, To decrease swelling/inflammation, To increase ROM, To improve nutrient delivery to tissue, To increase oxygenation perfusion, To improve muscle performance and motor function, To improve ability of physical actions for home/community/work/leisure, To improve gait and locomotor functions, To improve health of tissue, To decrease soft tissue restriction Manual Therapy Techniques to Include: Massage, Mobilization, Functional dry needling, Soft tissue mobilization For the Purpose of:: To decrease pain, To decrease swelling/inflammation, To increase ROM, To improve nutrient delivery to tissue, To increase oxygenation perfusion, To improve muscle performance and motor function, To improve ability to perform ADL's Please do not hesitate to contact me at [phone] by phone or if you have questions or concerns regarding this new plan of care! Sincerely, Chet Bhakta DPT
--- NOTE | 2022-04-14 10:59 | HP.PTDCSUM_ITS ---
It has been my pleasure to treat DAT TREADWELL referred by Dr. Loco Dash MD, with the diagnosis of Cervical disc degeneration, and Cervical radiculopathy for a total of 21 visit(s). Discharge Date: 02/05/22 Please see the following information for a summary of their discharge status. Subjective: Pt. reports overall doing much better. I talked to her about continuing to exercise and progress with her neck and thoracic spine stability. Pt. consents. She reports being 90% better overall. Pt. is going on vacation to visit daughter next week. I did mention about possible use of personal care assistant to further progress her with her strengthening. Pt. consents. R side of cervical spine Pain Intensity (Out of 10): 0 R hand Pain Intensity (Out of 10): 0 % Improvement: 90 Objective/Function: Pt. still has some tightness with cervical extension and rotation (min loss in both directions), without pain. She denies N/T in R hand today. 5/5 strength in BUEs and cervical spine. She is slight tight with her thoracic extension as well, but has progressed. Pt. pleased. Pt. Is overall doing much better. Goal 1:: LTG: Pt. to be I with HEP for thoracic/cervical stability exercises. Goal Progress: Progressing Goal 2:: STG: pt. to have decreased N/T in R 4th/5th digits of RUE by 50%. Goal Progress: Goal Met Goal 3:: STG: Pt. to sleep throughout the night without increase in symptoms. Goal Progress: Goal Met Goal 4:: LTG: Pt. to reports 0-2/10 pain in cervical spine and RUE allowing for increased tolerance to all work and recreational activities. Goal Progress: Goal Met Goal 5:: LTG: Pt. to have increased B deltoid and UT strength to at least 30# throughout. Goal Progress: Progressing Plan: DC to HEp at this point in time. Discharge Comments: Pt. was seen for her cervical radiculopathy. She progressed with strengthening throughout thoracic and cervical musculature. I have urged her to continue with her strengthening I and even to look into personal training to assist with maintenance. Pt. consents. pt. will be DC from PT at this point in time. If there are questions or concerns regarding this patient's physical therapy, please feel free to call me at [phone]. Thank you for the referral of this patient. Sincerely, Chet Bhakta, DPT Balance/Gait/Functional tests - Balance/Special Test Scores Oswestry Neck Score: 3
== END 2022-02-05 19:00 | disposition home or self-care (01) ==
LOC: PT 13:00
PROVIDERS: PCP Internal Medicine; Referring Provider Anesthesiology Pain Medicine; Visit Provider Anesthesiology Pain Medicine
DX: M50.30 Other cervical disc degeneration, unspecified cervical region (principal); M54.12 Radiculopathy, cervical region
CPT/HCPCS: 97110; 97140; 97161; 97164

== ENCOUNTER → 2022-04-14 | Outpatient (CLI) | payer OTHER, SELFPAY ==
[2022-04-14 17:50] LABS: Absolute Lymphocyte Count 2.53 X10^3/uL (0.83-4.51); Absolute Neutrophil Count 3.8 X10^3/uL (2.0-7.7); Basophil# 0.04 X10^3/uL; Basophil% 0.6 % (0-1); Eosinophil# 0.17 X10^3/uL; Eosinophils% 2.4 % (0-5); Hematocrit 43.4 % (37-47); Hemoglobin 14.2 g/dL (12.0-15.0); Lymphocyte # 2.53 X10^3/ul (0.83-4.51); Lymphocyte % 35.8 % (19-41); Mean Corp Hgb Conc 32.7 g/dL (32-36); Mean Corpuscular Hgb 30.3 pg (27.0-32.0); Mean Corpuscular Volume 92.5 fL (81-99); Mean Platelet Vol. 11.5 fl (6.2-12.0); Monocyte# 0.49 X10^3/uL; Monocyte% 6.9 % (0-10); NRBC Flagged by Analyzer 0 % (0-5); Neutrophil % 53.9 % (47-70); Platelet Count 217 K/mm3 (150-450); RBC Distribution Width CV 13.2 % (11.6-14.6); RBC Distribution Width SD 44.7 fl (35.1-43.9); Red Blood Count 4.69 M/mm3 (4.2-5.4); White Blood Count 7.1 K/mm3 (4.4-11.0)
[2022-04-14 18:28] LABS: Vitamin B12 633 pg/mL (211-911); Vitamin D,25 Hydroxy 40.5 ng/mL
[2022-04-14 18:50] LABS: Ferritin 40 ng/mL (8-252); Iron 70 ug/dL (50-170); Iron Binding Capacity,Total 314 ug/dL (250-450); PERCENT IRON SATURATION 22.3 % (15.0-55.0); T4 Free Direct 1.16 ng/dL (0.76-1.46); T4 Total, Thyroxin 9.9 ug/dL (4.8-13.9); Thyroid Stim Hormone (TSH) 1.28 uIU/mL (0.358-3.74)
[2022-04-18 15:16] LABS: Anti-Nuclear Antibody Test Negative (.); Vitamin D 1,25-Dihydroxy 43.1 pg/mL (24.8-81.5)
[2022-04-22 16:09] LABS: DHEA Sulfate 13.8 ug/dL (29.4-220.5); Testosterone, % Free 1.82 % (0.50-2.80); Testosterone, Free < 0.05 ng/dL (0.10-0.85); Testosterone, Total < 3 ng/dL (3-67)
[2022-04-22 18:27] LABS: Androstenedione < 25 ng/dL (17-99); Sex Hormone-binding Globulin 48.9 nmol/L (17.3-125.0); Zinc, Plasma or Serum 58 ug/dL (44-115)
== END | disposition home or self-care (01) ==
LOC: MTLAB 16:19
PROVIDERS: PCP Internal Medicine; Referring Provider Dermatology; Visit Provider Dermatology
DX: L65.0 Telogen effluvium (principal)
CPT/HCPCS: 36415; 82157; 82306; 82607; 82627; 82652; 82728; 82746; 83540; 83550; 84270; 84402; 84403; 84436; 84439; 84443; 84630; 85025; 86038; 82626

== ENCOUNTER → 2022-04-26 | Outpatient (CLI) | payer OTHER, SELFPAY ==
--- NOTE | 2022-04-26 14:55 | RAD_ITS ---
STUDY: X-RAY - LUMBAR SPINE REASON FOR EXAM: Female, 61 years old. LEFT LEG PAIN TECHNIQUE: 5 view(s) of the lumbar spine were obtained. COMPARISON: None FINDINGS: Vertebral bodies are normal in height. No definite fracture demonstrated. Minimal anterior subluxation of L4 on L5. Facet arthropathy normal most pronounced at L4-5 and L5-S1. No paravertebral soft tissue mass identified. RAD/L/S Spine Min 4 Views IMPRESSION: Minimal anterolisthesis at L4-5 likely secondary to degenerative changes. No evidence of fracture or traumatic subluxation. Electronically Signed: Jeri Barraza MD at 7:15 EDT ,
== END | disposition home or self-care (01) ==
LOC: MTRAD 14:53
PROVIDERS: PCP Internal Medicine; Referring Provider Anesthesiology Pain Medicine; Visit Provider Anesthesiology Pain Medicine
DX: M79.605 Pain in left leg (principal)
CPT/HCPCS: 72110

== ENCOUNTER 2022-05-17 15:16 | Emergency (ER) | payer OTHER, SELFPAY ==
[2022-05-17 15:20] VITALS: BP 138/78; PULSE 69; RESP 16; TEMP 36.8; O2SAT 99; BMI 31.1
[2022-05-17] MEDS: Doxycycline 100 MG CAPSULE PO (15:50)
--- NOTE | 2022-05-17 18:55 | EDS_ITS ---
HPI History of Present Illness Chief Complaint: Wound Check Narrative Narrative: 61-year-old female presenting for wound check. Patient had carpal tunnel repair 2 weeks ago on . She had this by Dr. Cano with [facility]. Sutures were taken out this last . This morning she noted a small amount of serosanguineous fluid draining from the wound. There are some redness at the base of it on her wrist on the volar surface. The wound has slightly been dehisced. She has no streaking up her arm or significant increase in pain. No systemic signs or symptoms. She had no trauma. 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 Thyroid disease Home Medications methylprednisolone 4 mg tablets in a dose pack 4 mg PO UD ##1 09/14/20 [Rx Last Taken Unknown] gabapentin 300 mg capsule cap PO 12/07/21 [History Last Taken Unknown] metaxalone 800 mg tablet tablet PO 12/07/21 [History Last Taken Unknown] Synthroid 175 mcg tablet (levothyroxine) 175 mcg PO DAILY #90 tabs 12/15/21 [Rx Last Taken Unknown] doxycycline hyclate 100 mg capsule 100 mg PO BID #14 caps 05/17/22 [Rx Last Taken Unknown] doxycycline hyclate 100 mg capsule 100 mg PO BID #14 caps 05/17/22 [Rx Last Taken Unknown] Allergy/AdvReac Type Severity Reaction Status Date / Time No Known Allergies Allergy Verified 05/17/22 15:24 Family History Other Thyroid disorder Surgical History Status post carpal tunnel release Social History (Updated 12/07/21 @ 14:07 by Deisy Lara) Smoking Status: Never smoker alcohol intake: current alcohol intake frequency: holidays/special occasions only substance use type: does not use what type of physical activity do you participate in: other ROS ROS ED Constitutional Constitutional ED: Denies chills or fever(s) Eyes Eyes: Denies change in vision or diplopia ENT ENT ED: Denies rhinorrhea or sore throat Cardiovascular Cardiovascular: Denies chest pain or palpitations Respiratory/Chest Respiratory/Chest: Denies cough or dyspnea Gastrointestinal Gastrointestinal: Denies abdominal pain or constipation Genitourinary Genitourinary ED: Denies dysuria or hematuria Musculoskeletal Musculoskeletal: Denies back pain Integumentary Reports other Details: Postoperative wounds on the right wrist and right Neurologic Neurologic: Denies headache(s) Psychiatric Psychiatric: Denies anxiety or depression EXAM Physical Exam Const Vital Signs: 05/17/22 15:20 Temperature 98.3 F Temperature Source Oral Pulse Rate 69 Respiratory Rate 16 Blood Pressure 138/78 H Blood Pressure Mean 98 Pulse Ox 99 Oxygen Delivery Method Room Air Positive well nourished General Appearance ED: NAD HEENT Reports moist mucous membranes normocephalic Eyes PERRL Resp normal respiratory effort and clear to auscultation bilaterally Cardio regular rate and regular rhythm Extremity General Extremety ED: Negative for edema General Extremity: Negative for edema Neuro oriented x3 and CN's II-XII intact bilaterally Sensorium / Orientation: alert Motor Exam: strength 5/5 throughout Psych mental status grossly normal Skin Skin Narrative: Surgical scar on the volar aspect of the right wrist extends linearly approximately 3 cm in the midline. There is no active drainage. There are some redness at the proximal portion of this without increased heat or fluctuance. There is no lymphangitic streaking. Is not tender to palpation. There is some partial dehiscence along the suture line here. There are a couple of small superficial incision tan on the palm of the right hand. These are not red, tender, draining. He is appear to be healing well. MDM MDM MDM Narrative Medical decision making narrative: Patient wound does not look grossly infected. There is no drainage from it. There is no fluctuance to suggest abscess. There is no lymphangitic streaking. Patient has full range of motion of the right hand without deficit. She is able to range her wrist although there is some limitation postoperatively. I suspect that the area on the base of the wound is likely irritated by the splint she has been wearing. She and her to request an antibiotic because her scared it might get infected and they have not been able to get a hold with her orthopedic surgeon. After discussion we did decide to give her antibiotics. They requested doxycycline which was provided I feels appropriate. Patient is counseled on wound care. She will call her orthopedic surgeon tomorrow. Impression: 1. Postop wound check 2. Early cellulitis 3. History of carpal tunnel syndrome Discharge Plan Triage Chief Complaint: Wound Check ED Provider: William Eason Dx/Rx/DC Orders Instructions: ED Wound Check (Infection) Prescriptions: New doxycycline hyclate 100 mg capsule 100 mg PO BID Qty: 14 0RF doxycycline hyclate 100 mg capsule 100 mg PO BID Qty: 14 0RF Discontinued doxycycline hyclate 20 mg tablet PO No Action gabapentin 300 mg capsule PO metaxalone 800 mg tablet PO levothyroxine [Synthroid] 175 mcg tablet 175 mcg PO DAILY Qty: 90 3RF methylprednisolone 4 MG tablets,dose pack 4 mg PO UD Qty: 1 0RF Primary Care Provider: Cathryn Rodas Referrals: Cathryn Rodas DO [Primary Care Provider] - Disposition Disposition: Home, Self Care Discharge Date/Time: 05/17/22 16:22
== END 2022-05-17 16:22 | disposition home or self-care (01) ==
PROVIDERS: Emergency Provider Student in an Organized Health Care Education/Training Program; PCP Internal Medicine; Visit Provider Student in an Organized Health Care Education/Training Program
DX: T81.31XA Disruption of external operation (surgical) wound, not elsewhere classified, initial encounter (principal); L03.113 Cellulitis of right upper limb; Y83.8 Other surgical procedures as the cause of abnormal reaction of the patient, or of later complication, without mention of misadventure at the time of the procedure; E06.3 Autoimmune thyroiditis; Z79.52 Long term (current) use of systemic steroids; Z79.890 Hormone replacement therapy; Z79.899 Other long term (current) drug therapy
CPT/HCPCS: 99282

== ENCOUNTER → 2022-07-05 | Outpatient (CLI) | payer OTHER, SELFPAY ==
[2022-07-05 13:24] LABS: T4 Free Direct 1.39 ng/dL (0.76-1.46); Thyroid Stim Hormone (TSH) 2.54 uIU/mL (0.358-3.74)
== END | disposition home or self-care (01) ==
PROVIDERS: PCP Internal Medicine; Referring Provider Internal Medicine; Visit Provider Internal Medicine
DX: E03.9 Hypothyroidism, unspecified (principal)
CPT/HCPCS: 36415; 84439; 84443

== ENCOUNTER 2022-11-11 16:38 | Emergency (ER) | payer OTHER, SELFPAY ==
[2022-11-11 16:38] VITALS: BP 130/80; PULSE 97; RESP 14; TEMP 36.2; O2SAT 96; BMI 29.5
--- NOTE | 2022-11-11 16:53 | EX.ED.UPPERE ---
HPI History of Present Illness Chief Complaint: Bite Informant: patient and spouse/S.O. Narrative Narrative: Wihmi-srof-[id number] female presents with seeking other for evaluation dog bite right hand prior to arrival. Reports dogs are going at it when she pulled them apart excellently got bit. Tetanus in last 5 years. no allergies she had leftover hydrocodone from carpal tunnel syndrome which she took at home prior to arrival. No anticoagulation medicines. No paresthesias. Significant other follows her specialist Dr. South for which patient will be seen tomorrow for wound check. She had surgery done at [facility] in August of her carpal tunnel revision along with trigger finger release. 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 RAVIN (obstructive sleep apnea) Rosacea, unspecified Thyroid disease Home Medications methylprednisolone 4 mg tablets in a dose pack 4 mg PO UD ##1 09/14/20 [Rx Last Taken Unknown] metaxalone 800 mg tablet tablet PO 12/07/21 [History Last Taken Unknown] Synthroid 175 mcg tablet (levothyroxine) 175 mcg PO DAILY #90 tabs 12/15/21 [Rx Last Taken Unknown] doxycycline hyclate 100 mg capsule 100 mg PO BID #14 caps 05/17/22 [Rx Last Taken Unknown] doxycycline hyclate 100 mg capsule 100 mg PO BID #14 caps 05/17/22 [Rx Last Taken Unknown] calcium carbonate 600 mg calcium (1,500 mg) tablet (Calcium) 600 mg PO DAILY 10/01/22 [History Last Taken Unknown] cholecalciferol (vitamin D3) 50 mcg (2,000 unit) capsule 50 mcg PO DAILY 10/01/22 [History Last Taken Unknown] flaxseed oil-omega 3,6,9-fatty acids 1,200 mg-540 mg-132 mg capsule cap PO 10/01/22 [History Last Taken Unknown] omega 2-dpm-mbg-fish oil 300 mg-1,000 mg capsule (Fish Oil) 1 cap PO DAILY 10/01/22 [History Last Taken Unknown] vitamin K2 100 mcg capsule 100 mcg PO DAILY 10/01/22 [History Last Taken Unknown] Allergy/AdvReac Type Severity Reaction Status Date / Time No Known Allergies Allergy Verified 11/11/22 16:38 Family History Other Thyroid disorder Surgical History History of dilation and curettage Hx of section Status post carpal tunnel release Social History Smoking Status: Never smoker alcohol intake: current alcohol intake frequency: holidays/special occasions only substance use type: does not use what type of physical activity do you participate in: other ROS ROS ED Constitutional Constitutional ED: Denies chills, fever(s) or sweats Eyes Eyes: Denies change in vision ENT ENT ED: Denies dysphagia or sore throat Cardiovascular Cardiovascular: Denies chest pain, leg edema, palpitations or racing heartbeat Respiratory/Chest Respiratory/Chest: Denies cough, dyspnea or dyspnea on exertion Gastrointestinal Gastrointestinal: Denies abdominal pain, diarrhea, nausea or vomiting Genitourinary Genitourinary ED: Denies dysuria, hematuria or urinary frequency Musculoskeletal Musculoskeletal: Reports extremity pain; Denies back pain or neck pain Integumentary Reports wounds; Denies rash Neurologic Neurologic: Denies headache(s), paresthesias or weakness EXAM Physical Exam Const Vital Signs: 11/11/22 16:38 Temperature 97.1 F L Temperature Source Temporal Pulse Rate 97 Respiratory Rate 14 Blood Pressure 130/80 H Blood Pressure Mean 96 Pulse Ox 96 Oxygen Delivery Method Room Air Positive well nourished and well developed General Appearance ED: well developed and NAD HEENT Reports moist mucous membranes normocephalic and atraumatic Eyes PERRL, EOMs intact bilaterally and conjunctivae normal General Eye ED: Yes normal appearance of both eyes Neck no lymphadenopathy and supple General: Negative for tenderness Chest Wall Chest: Negative for tenderness Resp normal respiratory effort and normal air movement Effort and Inspection: symmetric chest movement; Negative for respiratory distress Cardio regular rate, regular rhythm and no murmurs Peripheral Pulses: pulses 2+ throughout GI normal to inspection, nondistended, normoactive bowel sounds and non-tender Palpation: Negative for guarding or rebound tenderness present Back/Spine no CVA tenderness and no thoracic nor lumbar tenderness Extremity Extremity Narrative: Hand: Puncture noted mid hand just lateral to the third metatarsal along with over the fourth metacarpal carpa proximally. Full range of motion of the digits no pain with extension against resistance. There is lacerations on the palmar aspect distal fourth and fifth metacarpals that superficial. There is no active bleeding. General Extremety ED: Negative for edema or tenderness General Extremity: Negative for edema Neuro oriented x3 and no sensory deficits noted Sensorium / Orientation: awake and alert Skin no wounds MDM MDM MDM Narrative Medical decision making narrative: Dog bite right hand. Differential dog bite injury superficial lacerations. This differential tendon injury, residual foreign bodies. However clinically full range of motion of the digits with extensor against resistance with no pain lower suspicion for tendon injury. Three-view x-ray right hand interpreted by myself negative for any radiopaque foreign bodies no bony injuries. Wounds were soaked in Betadine saline mix. Cleansed by nursing Steri-Strips were placed. Discussed no closing to prevent infection. She started on Augmentin. Tetanus was updated after reporting was more than 10 years on reevaluation. Initially thought it was 5 years. She has appointment with Dr. South tomorrow for which she will keep. I reevaluate ported that she was called in Augmentin to her pharmacy by Dr. South and is ready to be picked up. Return precautions. All questions were answered. Discharge Plan Triage Chief Complaint: Bite ED Provider: León Lambert Dx/Rx/DC Orders Clinical Impression: Dog bite of right hand, Tetanus toxoid vaccination administered at current visit Instructions: Tdap Vaccine, ED Dog Bite Prescriptions: No Action metaxalone 800 mg tablet PO levothyroxine [Synthroid] 175 mcg tablet 175 mcg PO DAILY Qty: 90 3RF omega 9-iep-qcs-fish oil [Fish Oil] 300-1,000 mg capsule 1 cap PO DAILY vitamin K2 100 mcg capsule 100 mcg PO DAILY cholecalciferol (vitamin D3) 50 mcg (2,000 unit) capsule 50 mcg PO DAILY calcium carbonate [Calcium 600] 600 mg calcium (1,500 mg) tablet 600 mg PO DAILY flaxseed-omega3,6,9-fatty acid 1,200-540-132 mg capsule PO methylprednisolone 4 MG tablets,dose pack 4 mg PO UD Qty: 1 0RF doxycycline hyclate 100 mg capsule 100 mg PO BID Qty: 14 0RF doxycycline hyclate 100 mg capsule 100 mg PO BID Qty: 14 0RF Primary Care Provider: Cathryn Rodas Referrals: Joel South MD [Med Staff - Active Staff] - Keep [facility] appointment Cathryn Rodas DO [Primary Care Provider] - Activity Restrictions/Additional Instructions: X-rays negative. Tetanus updated. Take antibiotic as called in by Dr. South. Follow-up with Dr. South as scheduled. Disposition Disposition: Home, Self Care Discharge Date/Time: 11/11/22 17:33
--- NOTE | 2022-11-11 17:03 | RAD_ITS ---
STUDY: X-RAY - RIGHT HAND REASON FOR EXAM: Female, 62 years old. dog bite TECHNIQUE: 3 view(s) of the hand. COMPARISON: January 07, 2022 FINDINGS: Normal radiocarpal articulation. Normal distal radioulnar joint. Normal visualized carpal bones. Normal carpal articulations Normal carpometacarpal articulation of the thumb. Normal second through fifth carpometacarpal joints. Normal metacarpi. Normal metacarpophalangeal joint of the thumb. Normal interphalangeal joint of the thumb. Normal proximal and distal phalanges of the thumb. Normal metacarpophalangeal joints of the second through fifth fingers. Normal proximal and distal interphalangeal joints of the second through fifth fingers. Normal phalanges of the second through fifth fingers. The soft tissue structures are unremarkable. RAD/Hand Min 3 Views IMPRESSION: Normal x-ray examination of the hand. Electronically Signed: Negro Winn MD at 17:32 EST ,
[2022-11-11] MEDS: Amox/Clavulanate 875 MG Tablet PO (17:07)
[2022-11-11] MEDS: Diphth,Pertuss(Acell),Tet Vac 0.5 ML Vial IM (17:13)
== END 2022-11-11 17:33 | disposition home or self-care (01) ==
LOC: ED 17:32
PROVIDERS: Emergency Provider Emergency Medicine; PCP Internal Medicine; Visit Provider Emergency Medicine
DX: S61.451A Open bite of right hand, initial encounter (principal); E78.5 Hyperlipidemia, unspecified; W54.0XXA Bitten by dog, initial encounter
CPT/HCPCS: 73130; 90715; 99283

== ENCOUNTER 2022-11-23 09:39 | Day surgery (SDC) | payer OTHER, SELFPAY ==
[2022-11-23 10:07] VITALS: BP 131/71; PULSE 75; RESP 16; TEMP 36.4; O2SAT 97; BMI 29.3
[2022-11-23] MEDS: Lactated Ringers 1,000 ML 15 ML IV (10:14)
--- NOTE | 2022-11-23 11:00 | COLBX_PTH ---
PATIENT: DAT TREADWELL LOC: EN U#:[id number] AGE/SX: 62/F ROOM: RE11/23/[address]: Dr. Keven Contreras DO : 1960 BED: DIS: 11/23/2022 SPEC #: [id number] RECD: 11/23/22 15:00 STATUS: ARMIN JANE #: [id number] SHAQUILLE: 11/23/22 11:[address]: Keven Contreras DEPT: SURGICAL PATHOLOGY RECD BY: Frederic Fatima ENTERED: 11/24/22 08:48 SP TYPE: COLON BX OTHR DR: Dr. Cathryn Rodas DO Tissues: Transverse colon Procedures: Surgery Specimen Level IV HEADER OPERATION: Colonoscopy ? open access (MAC) with biopsies PRE-OP DIAGNOSIS: Screening TISSUE SUBMITTED: Transverse colon polyp biopsy MICROSCOPIC DIAGNOSIS Transverse colon polyp, biopsy: Tubular adenoma. AMINATA:mike 11/25/2022 MICROSCOPIC DESCRIPTION Slides are reviewed. GROSS DESCRIPTION Received in fixative is one container labeled with the patient's name and designated transverse colon polyp biopsy. The specimen consists of one irregular fragment of light turpin soft tissue that measures 0.5 x 0.5 x 0.1 cm. The specimen is totally submitted in one cassette. / SJ:rg 11/24/2022 TC:1 CPT: 67224
--- NOTE | 2022-11-23 11:17 | HP.PCM_ITS ---
[facility] - General General Date of Admission: 11/23/22 Date of Service: 11/23/22 Chief Complaint: Screening colonoscopy HPI Herbie TREADWELL, is a 62 F who presents today for a screening colonoscopy.. She had a colonoscopy approximately 10 years ago. Colonoscopy did not show any signs of polyps. She did not have a bleeding. She not having abdominal pain. She is not having nausea vomiting or diarrhea. She has no family history of colon cancer or colon polyps. 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 Non-smoker RAVIN (obstructive sleep apnea) Rosacea, unspecified Thyroid disease Home Medications doxycycline hyclate 100 mg capsule 100 mg PO BID #14 caps 05/17/22 [Rx Last Taken 11/22/22] calcium carbonate 600 mg calcium (1,500 mg) tablet (Calcium) 600 mg PO DAILY 10/01/22 [History Last Taken Unknown] cholecalciferol (vitamin D3) 50 mcg (2,000 unit) capsule 50 mcg PO DAILY 10/01/22 [History Last Taken Unknown] flaxseed oil-omega 3,6,9-fatty acids 1,200 mg-540 mg-132 mg capsule 1 cap PO DAILY 10/01/22 [History Last Taken Unknown] omega 4-bez-qqa-fish oil 300 mg-1,000 mg capsule (Fish Oil) 1 cap PO DAILY 10/01/22 [History Last Taken Unknown] vitamin K2 100 mcg capsule 100 mcg PO DAILY 10/01/22 [History Last Taken Unknown] acetylcysteine 600 mg capsule (NAC) 600 mg PO DAILY 11/19/22 [History Last Taken Unknown] cimetidine 200 mg tablet 200 mg PO QHS 11/19/22 [History Last Taken Unknown] coenzyme Q10 100 mg capsule (CoQ-10) 100 mg PO DAILY 11/19/22 [History Last Taken Unknown] levothyroxine 175 mcg tablet 175 mcg PO DAILY 11/19/22 [History Last Taken 11/22/22] minoxidil 10 mg tablet 10 mg PO DAILY 11/19/22 [History Last Taken Unknown] multivitamin 1 tab PO DAILY 11/19/22 [History Last Taken Unknown] Allergy/AdvReac Type Severity Reaction Status Date / Time No Known Allergies Allergy Verified 02/07/23 10:05 Family History Other Thyroid disorder Surgical History History of dilation and curettage Hx of section Status post carpal tunnel release Social History Smoking Status: Never smoker alcohol intake: current alcohol intake frequency: holidays/special occasions only substance use type: does not use what type of physical activity do you participate in: other ROS Review of Systems ROS Unobtainable: other Constitutional Constitutional: Denies fatigue, fever(s), poor appetite, weight gain or weight loss ENT HEENT: Denies mouth lesions Cardiovascular Cardiovascular: Denies abdominal bloating, abdominal edema or abdominal pain Respiratory/Chest Respiratory/Chest: Denies change in mental status, change in phlegm color, chest congestion or chest tightness Gastrointestinal Gastrointestinal: Denies belching, bloating, change in bowel habits, change in stool character, chewing difficulty, coffee ground emesis, constipation, cramping, diarrhea, dyspepsia, dysphagia, early satiety, excessive flatus, fecal incontinence, heartburn, hematemesis, hematochezia, hemorrhoids, loose stools, melena, nausea, odynophagia, rectal bleeding, tenesmus, vomiting or weight changes Genitourinary Genitourinary: Denies abdominal discomfort, burning urination or itching Musculoskeletal Musculoskeletal: Reports as per HPI; Denies muscle weakness or myalgias Integumentary Integumentary: Denies jaundice Neurologic Neurologic: Denies lack of coordination or weakness Psychiatric Psychiatric: Denies confusion, depression, memory loss, mood swings, paranoia or suicidal ideation Endocrine Endocrinology: Denies systems reviewed and no addt'l complaints, except as documented Hematologic/Lymphatic Hematologic/Lymphatic: Denies anemia, easy bleeding, easy bruising or lymphadenopathy Allergic/Immunologic Allergic/Immunologic: Denies systems reviewed and no addt'l complaints, except as documented Vital Signs Vital Signs Vital Signs: 11/23/22 10:07 11/23/22 10:07 Temperature 97.5 F L Temperature Source Temporal Pulse Rate 75 Respiratory Rate 16 Respiratory Pattern Normal Blood Pressure 131/71 H Blood Pressure Mean 91 Blood Pressure Source Monitor Blood Pressure Position Semi-Fowlers Blood Pressure Location Left Arm Pulse Ox 97 Oxygen Delivery Method Room Air Weight Weight: 160 lb 7.944 oz Body Mass Index (BMI) 29.3 Physical Exam Const alert General Appearance: cooperative Orientation / Consciousness: oriented to person HEENT hearing grossly normal bilaterally Head and Scalp: normal to inspection Face and Sinus: face symmetric Nose: external nose normal Mouth: oral and palatal mucosa normal Eyes conjunctivae normal General Eye: normal appearance of both eyes Neck full ROM General: normal visual inspection Lymph Lymphatic: no lymphadenopathy noted Chest inspection of chest normal and palpation of chest normal Chest: symmetrical chest wall rise Resp normal respiratory effort Effort and Inspection: able to speak in complete sentences Cardio regular rate GI non-distended Percussion: normal to percussion Rectal Exam: deferred Neuro Speech: speech normal Gait (Neuro): normal gait Assessment & Plan Assessment/Plan (1) Encounter for screening for malignant neoplasm of colon: PLAN: She was explained alternatives, risk, benefits including outstanding bleeding, infection, sepsis, perforation, need for discharge and . She have an ASA of 1.
[2022-11-23 11:50] VITALS: BP 104/46; BP 131/71; PULSE 87; RESP 16; TEMP 36.7; O2SAT 100
[2022-11-23 11:55] VITALS: BP 126/71; BP 131/71; PULSE 73; RESP 16; O2SAT 100
--- NOTE | 2022-11-23 11:55 | OP.COLON_ITS ---
Patient Name: Renee Burns Procedure Date: 11/23/2022 11:24 AM Date of : 1960 Age: 62 Procedure: Colonoscopy Indications: Screening for colorectal malignant neoplasm Providers: Keven Contreras DO Referring MD: Keven Contreras DO Medicines: Monitored Anesthesia Care Patient Profile: This is a 62 year old female. Refer to note in patient chart for documentation of history and physical. Last Colonoscopy: more than 10 years ago. Complications: No immediate complications. Procedure: Pre-Anesthesia Assessment: - Prior to the procedure, a History and Physical was performed, and patient medications and allergies were reviewed. The risks and benefits of the procedure and the sedation options and risks were discussed with the patient. All questions were answered and informed consent was obtained. Patient identification and proposed procedure were verified by the physician. Mental Status Examination: normal. Prophylactic Antibiotics: The patient does not require prophylactic antibiotics. Prior Anticoagulants: The patient has taken no previous anticoagulant or antiplatelet agents. ASA Grade Assessment: II - A patient with mild systemic disease. After reviewing the risks and benefits, the patient was deemed in satisfactory condition to undergo the procedure. The anesthesia plan was to use monitored anesthesia care (MAC). Immediately prior to administration of medications, the patient was re-assessed for adequacy to receive sedatives. The heart rate, respiratory rate, oxygen saturations, blood pressure, adequacy of pulmonary ventilation, and response to care were monitored throughout the procedure. The physical status of the patient was re-assessed after the procedure. After I obtained informed consent, the scope was passed under direct vision. Throughout the procedure, the patient's blood pressure, pulse, and oxygen saturations were monitored continuously. The colonoscope was introduced through the anus and advanced to the cecum, identified by appendiceal orifice and ileocecal valve. The colonoscopy was performed without difficulty. The patient tolerated the procedure well. The quality of the bowel preparation was good. Scope In: 11:32:08 AM Scope Withdrawal Time 0 hours 10 minutes 40 seconds Scope Out: 11:46:07 AM Total Procedure Duration Time 0 hours 13 minutes 59 seconds Findings: The perianal and digital rectal examinations were normal. A 5 mm polyp was found in the transverse colon. The polyp was sessile. The polyp was removed with a jumbo cold forceps. Resection and retrieval were complete. Verification of patient identification for the specimen was done. Estimated blood loss was minimal. The exam was otherwise without abnormality on direct and retroflexion views. Impression: - One 5 mm polyp in the transverse colon, removed with a jumbo cold forceps. Resected and retrieved. - The examination was otherwise normal on direct and retroflexion views. Recommendation: - Discharge patient to home. - Resume previous diet. - Continue present medications. - Await pathology results. - Repeat colonoscopy in 5 years for surveillance. Procedure Code(s): --- Professional --- 75066, Colonoscopy, flexible; with biopsy, single or multiple CPT copyright 2017 [employer]. All rights reserved. The codes documented in this report are preliminary and upon benefits administrator review may be revised to meet current compliance requirements. Keven Contreras DO 11/23/2022 11:55:01 AM This report has been signed electronically. Number of Addenda: 0 Note Initiated On: 11/23/2022 11:24 AM
--- NOTE | 2022-11-23 11:56 | OP.CCLET_ITS ---
11/23/2022 Cathryn Rodas [address] [place] [address] Re : Colonoscopy procedure for Renee Burns Dear Dr. Rodas This procedure was performed on Wednesday, November 23, 2022. My impressions and recommendations are as follows: Impressions : - One 5 mm polyp in the transverse colon, removed with a jumbo cold forceps. Resected and retrieved. - The examination was otherwise normal on direct and retroflexion views. Recommendations : - Discharge patient to home. - Resume previous diet. - Continue present medications. - Await pathology results. - Repeat colonoscopy in 5 years for surveillance. My findings are described in the full procedure note, which is enclosed. If I can be of further assistance, please feel free to contact me at . Sincerely, Keven Contreras, 11/23/2022 11:55:01 AM This report has been signed electronically.
[2022-11-23 12:00] VITALS: BP 131/71; BP 145/125; PULSE 77; RESP 16; O2SAT 100
[2022-11-23 12:05] VITALS: BP 121/78; BP 131/71; PULSE 16; RESP 16; TEMP 36.6; O2SAT 97
[2022-11-23 12:20] VITALS: BP 131/71
== END 2022-11-23 12:36 | disposition home or self-care (01) ==
LOC: EN 09:45 → AC 09:45
PROVIDERS: PCP Internal Medicine; Referring Provider Internal Medicine Gastroenterology; Visit Provider Internal Medicine Gastroenterology
PROC: 0DJD8ZZ Inspection of Lower Intestinal Tract, Via Natural or Artificial Opening Endoscopic (ICD-10-PCS; CPT 45378; principal; 2022-11-23 10:55)
DX: Z12.11 Encounter for screening for malignant neoplasm of colon (principal); E78.5 Hyperlipidemia, unspecified; D12.3 Benign neoplasm of transverse colon; E06.3 Autoimmune thyroiditis; Z79.899 Other long term (current) drug therapy; Z79.890 Hormone replacement therapy
CPT/HCPCS: 45380; 88305; J7120; J2405

== ENCOUNTER → 2023-03-21 | Outpatient (CLI) | payer OTHER, SELFPAY ==
--- NOTE | 2023-03-21 13:20 | RAD_ITS ---
STUDY: X-RAY - LUMBAR SPINE REASON FOR EXAM: Female, 62 years old. Low back pain with radiation TECHNIQUE: 3 view(s) of the lumbar spine were obtained. COMPARISON: 04/26/2022 FINDINGS: Normal lumbar lordosis. There is no substantial scoliosis. There is a normal alignment of the vertebrae from L1 to L4. Stable mild grade 1 spondylolisthesis at L4-5.. There is multilevel endplate spondylosis of the lumbar vertebrae. There is multi-level degenerative disc disease with multi-level disc space narrowing. There is no demonstrated fracture. The soft tissue structures are unremarkable. RAD/Lumbar Spine 2 or 3 Views IMPRESSION: Age consistent degenerative changes, no acute findings Stable mild grade 1 spondylolisthesis at L4-5 Electronically Signed: Fredrick Westbrook MD at 12:57 EDT ,
== END | disposition home or self-care (01) ==
LOC: MTRAD 13:16
PROVIDERS: PCP Internal Medicine; Referring Provider Internal Medicine; Visit Provider Internal Medicine
DX: M54.50 Low back pain, unspecified (principal)
CPT/HCPCS: 72100

== ENCOUNTER → 2023-04-07 | Outpatient (CLI) | payer SELFPAY ==
--- NOTE | 2023-04-07 13:39 | NURSING ---
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 Pt escorted to elevator by health and safety tech. This RN called [facility] and left voicemail to inform that scan was not completed. Patient will likely need more individualized plan for lowering heart rate before rescheduling.
== END | disposition home or self-care (01) ==
LOC: CT 13:07
PROVIDERS: PCP Internal Medicine; Referring Provider Internal Medicine; Visit Provider Internal Medicine
DX: E78.5 Hyperlipidemia, unspecified (principal)

== ENCOUNTER 2023-05-06 13:00 | Outpatient (RCR) | payer OTHER, SELFPAY ==
--- NOTE | 2023-04-12 08:52 | HP.PTEVAL_ITS ---
Patient's Visit Information DAT TREADWELL is a 62 year old F referred to Physical Therapy by Dr. Cathryn Rodas DO with a diagnosis of LBP with radiculopathy. Date of Evaluation: 04/04/23 Physical Therapist: Chet Bhakta DPT - Visit Plan Frequency: 2x /Week Duration: 6 Weeks Plan: Start lumbar extension ROM, HS stretching and hip flexor stretching. Add in core stability of neutral spine progressing to dynamic lumbar strengthening. May add in DN, US and or manual techniques initially to maintain reduction of symptoms. - Subjective Pt. is here today for her initial evaluation with diagnosis of low back pain. Pt. reports just getting back from a trip where she did a lot of walking and by half way through her trip she started to have low back pain, but more so burning in BLEs and high pain. He reports pain being at bilateral anterior aspect. She took some muscle relaxers and anti inflammatory and this helped. She came back home and also took prednisone which further helped. She reports having decreased pain currently, but is very worried about getting pain again. Pt. reports having increased pain with lifting and with her daily work. Pt. reports her symptoms have significantly reduced since her trip. Pt. did trial PT at another facility, but did not enjoy it there and wanted to change to this facility. - Pain Lumbar spine Pain Intensity (Out of 10): 1 Pain Intensity Range: 0, 6 - Objective POSTURE: Pt. has increased anterior pelvic tilt, fwrd posture. PALPATION: pt. has tenderness and hypomobility with spring testing to L3-L4-L5. She has increased tightness with palpation of L lumbar erector spinae. NEURO: Pt. has normal sensation in BLEs and normal DTR of BLEs. ROM: LUMBAR SPINE: flexion min loss tightness, ext min/mod loss mild increase NE, SB min loss NE, rotation min loss NE. Pt. has marked tightness in B hip flexors and B HS as well. MMT: Pt. has 5/5 strength throughout BLEs. Pt. has fair- core strength. Pt. has 4+/5 lumbar extension strength as well. GAIT: Pt. has normal gait pattern without increase in symptoms. No major lateral sway or Trendelenburg noted. - Special Tests L/S Slump test left side: Negative L/S Slump test right side: Negative L/S Left Straight Leg Raise: Negative L/S Right Straight Leg Raise: Negative Lumbar Standing: Flexion - Mechanical Response: No effect Lumbar Standing: Flexion - Symptoms During Testing: Increases Lumbar Standing: Flexion - Symptoms After Testing: No effect Lumbar Standing: Extension - Mechanical Response: No effect Lumbar Standing: Extension - Symptoms During Testing: Increases Lumbar Standing: Extension - Symptoms After Testing: No effect Lumbar Standing: Right Side Glides - Mechanical Response: No effect Lumbar Standing: Right Side [place] - Symptoms During Testing: No effect Lumbar Standing: Right Side [place] - Symptoms After Testing: No effect Lumbar Standing: Left Side [place] - Mechanical Response: No effect Lumbar Standing: Left Side [place] - Symptoms During Testing: No effect Lumbar Standing: Left Side [place] - Symptoms After Testing: No effect - Balance/Special Test Scores Oswestry Low Back Score: 20 - Goals Goal 1:: LTG: Pt. to be I wit HEP. Goal Time Frame: 4-6 Weeks Goal 2:: STG: pt. to sleep throughout the night without increase in symptoms. Goal Time Frame: 2 Weeks Goal 3:: LTG: pt. to have full motion of lumbar spine and HS, hip flexors allowing for improved pelvic positioning. Goal Time Frame: 4-6 Weeks Goal 4:: LTG: Pt. to have increased core and lumbar extension strength to 5/5 throughout. Goal Time Frame: 4-6 Weeks Goal 5:: LTG: Pt. to complete all ADLs and household work without increase in lumbar spine pain. Goal Time Frame: 4-6 Weeks - Rehabilitation Potential Physical Therapy Diagnosis: Pt. has signs and symptoms consistent with LBO with radiculopathy. Pt. has marked lumbar hypomobility and tenderness in lumbar spine. I was unable to elicit radicular symptoms. She does have marked loss of motion and core weakness. Pt. would benefit from PT to work on her ROM and progress core stability to reduce risk of re injury. Rehabilitation Potential: Excellent - Anticipated Interventions Patient/Client Instruction: Educate patient on: Condition, Plan of Care, Risk Factors, Benefits of Fitness Program For the Purpose of:: To improve self management, To prevent re-injury, To improve ability to perform tasks related to life management, To improve tolerance to ADL's Therapeutic Exercise to Include: Strength training, Power training, Body mechanics, Postural training, Flexibilty training, Passive ROM, Active ROM, Dynamic Lumbar Stabilization, Roula Exercises For the Purpose of:: To decrease pain, To increase ROM, To improve nutrient delivery to tissue, To increase oxygenation perfusion, To improve muscle performance and motor function, To improve ability to perform ADL's, To improve health of tissue, To decrease soft tissue restriction, To increase flexibility/ROM Manual Therapy Techniques to Include: Mobilization, Passive ROM, Functional dry needling, Soft tissue mobilization For the Purpose of:: To decrease pain, To increase ROM, To improve nutrient delivery to tissue, To increase oxygenation perfusion, To improve muscle performance and motor function, To improve ability to perform ADL's, To decrease level of supervision to perform tasks, To improve ability of physical actions for home/community/work/leisure, To improve health of tissue IF ES: Yes Thermo therapy (hot pack): Yes Ultrasound (thermal/non thermal): Yes For the Purpose of:: To decrease pain, To increase ROM, To improve nutrient delivery to tissue, To increase oxygenation perfusion, To improve muscle performance and motor function Thank you for the opportunity to evaluate your patient. For Medicare and Medicare HMO plans, please review the plan of care and approve it. It will need to be FAXED BACK to us at [phone] for Medicare purposes. For Medicare only, by signing this I certify the plan of care. Please let me know if there are questions or concerns regarding this plan of care. Physician Signature: Date:
== END 2023-05-06 19:00 | disposition home or self-care (01) ==
LOC: PT 13:00
PROVIDERS: PCP Internal Medicine; Referring Provider Internal Medicine; Visit Provider Internal Medicine
DX: M54.50 Low back pain, unspecified (principal)
CPT/HCPCS: 97110; 97140; 97161; 97530

== ENCOUNTER → 2023-06-03 | Outpatient (CLI) | payer OTHER, SELFPAY ==
[2023-06-03 11:11] LABS: Absolute Lymphocyte Count 1.95 X10^3/uL (0.83-4.51); Absolute Neutrophil Count 3.3 X10^3/uL (2.0-7.7); Basophil# 0.03 X10^3/uL; Basophil% 0.5 % (0-1); Eosinophil# 0.12 X10^3/uL; Eosinophils% 2.1 % (0-5); Hematocrit 44.1 % (37-47); Hemoglobin 14.6 g/dL (12.0-15.0); Lymphocyte # 1.95 X10^3/ul (0.83-4.51); Lymphocyte % 33.6 % (19-41); Mean Corp Hgb Conc 33.1 g/dL (32-36); Mean Corpuscular Hgb 30.4 pg (27.0-32.0); Mean Corpuscular Volume 91.7 fL (81-99); Mean Platelet Vol. 10.6 fl (6.2-12.0); Monocyte# 0.44 X10^3/uL; Monocyte% 7.6 % (0-10); NRBC Flagged by Analyzer 0 % (0-5); Neutrophil # 3.25 X10^3/uL (2.7-7.7); Platelet Count 274 K/mm3 (150-450); RBC Distribution Width CV 12.9 % (11.6-14.6); RBC Distribution Width SD 43.6 fl (35.1-43.9); Red Blood Count 4.81 M/mm3 (4.2-5.4); White Blood Count 5.8 K/mm3 (4.4-11.0)
[2023-06-03 11:38] LABS: Vitamin B12 1204 pg/mL (211-911); Vitamin D,25 Hydroxy 38.1 ng/mL
[2023-06-03 11:46] LABS: Thyroid Stim Hormone (TSH) 0.25 uIU/mL (0.358-3.74)
== END | disposition home or self-care (01) ==
PROVIDERS: PCP Internal Medicine; Referring Provider Obstetrics & Gynecology; Visit Provider Obstetrics & Gynecology
DX: Z13.29 Encounter for screening for other suspected endocrine disorder (principal); Z13.21 Encounter for screening for nutritional disorder; R53.83 Other fatigue
CPT/HCPCS: 36415; 82306; 82607; 84443; 85025

== ENCOUNTER → 2023-06-06 | Outpatient (CLI) | payer OTHER, SELFPAY ==
[2023-06-06 12:48] LABS: Absolute Lymphocyte Count 2.02 X10^3/uL (0.83-4.51); Absolute Neutrophil Count 2.6 X10^3/uL (2.0-7.7); Basophil# 0.04 X10^3/uL; Basophil% 0.8 % (0-1); Eosinophil# 0.16 X10^3/uL; Eosinophils% 3.1 % (0-5); Hematocrit 45.2 % (37-47); Hemoglobin 14.8 g/dL (12.0-15.0); Lymphocyte # 2.02 X10^3/ul (0.83-4.51); Lymphocyte % 38.7 % (19-41); Mean Corp Hgb Conc 32.7 g/dL (32-36); Mean Corpuscular Hgb 30.6 pg (27.0-32.0); Mean Corpuscular Volume 93.4 fL (81-99); Mean Platelet Vol. 11.5 fl (6.2-12.0); Monocyte# 0.35 X10^3/uL; Monocyte% 6.7 % (0-10); NRBC Flagged by Analyzer 0 % (0-5); Neutrophil # 2.64 X10^3/uL (2.7-7.7); Neutrophil % 50.5 % (47-70); Platelet Count 268 K/mm3 (150-450); RBC Distribution Width SD 44.5 fl (35.1-43.9); Red Blood Count 4.84 M/mm3 (4.2-5.4); White Blood Count 5.2 K/mm3 (4.4-11.0)
[2023-06-06 14:01] LABS: ALB/GLOB Ratio 0.9 RATIO (0.9-2.4); AST(SGOT) 21 U/L (15-37); Alanine Aminotransfer ALT/SGPT 35 U/L (13-56); Albumin, Serum 3.7 g/dL (3.2-5.0); Alkaline Phosphatase 84 U/L (45-117); Anion Gap 6 (5-15); BUN 17 mg/dL (7-18); BUN/Creat Ratio 26.8 RATIO (10-20); Calcium,Total 9.1 mg/dL (8.5-10.1); Chloride 107 mmol/L (98-107); Cholesterol 208 mg/dL (200); Creatinine, Serum 0.64 mg/dL (0.55-1.02); EST Glomerular Filtration Rate 100 mL/min (>60); Est Glom Filt Rate - Afr Amer 121 mL/min (>60); Globulin 4.1 g/dL (2.2-4.2); Glucose 84 mg/dL (74-106); High Density Lipoprotein 64 mg/dL; Potassium 4.1 mmol/L (3.5-5.1); Protein, Total 7.8 g/dL (6.4-8.2); Sodium Level 138 mmol/L (136-145); Thyroid Stim Hormone (TSH) 0.35 uIU/mL (0.358-3.74); Triglycerides 81 mg/dL; Very Low Density Lipoprotein 16 mg/dL (5-40)
== END | disposition home or self-care (01) ==
LOC: MTLAB 09:33
PROVIDERS: PCP Internal Medicine; Referring Provider Internal Medicine; Visit Provider Internal Medicine
DX: E03.9 Hypothyroidism, unspecified (principal); E78.5 Hyperlipidemia, unspecified; E55.9 Vitamin D deficiency, unspecified
CPT/HCPCS: 36415; 80053; 80061; 82306; 84443; 85025

== ENCOUNTER → 2023-08-17 | Outpatient (CLI) | payer OTHER, SELFPAY | END | disposition home or self-care (01) | LOC: MRI 12:16 | PROVIDERS: PCP Internal Medicine; Referring Provider Orthopaedic Surgery; Visit Provider Orthopaedic Surgery | DX: M17.0 Bilateral primary osteoarthritis of knee (principal) ==

== ENCOUNTER → 2023-08-17 | Outpatient (CLI) | payer OTHER, SELFPAY ==
[2023-08-17 13:22] LABS: CREATININE FINGERSTICK 0.9 mg/dL (0.55-1.02); EGFR FINGERSTICK > 60.0000 mL/min (>60)
== END | disposition home or self-care (01) ==
PROVIDERS: PCP Internal Medicine; Visit Provider Internal Medicine
DX: M54.12 Radiculopathy, cervical region (principal); G25.2 Other specified forms of tremor
CPT/HCPCS: J7120

== ENCOUNTER → 2023-09-15 | Outpatient (CLI) | payer OTHER, SELFPAY ==
--- NOTE | 2023-09-15 15:07 | NEURO ---
NCS and/or EMG Patient Report Ordering Doctor: Cathryn Rodas DATE OF SERVICE: 09/15/23 Clinical Summary: This is a 63 year old female patient presenting with complaints of numbness that radiates between the neck and the right hand in the right upper extremity. She has a history of severe right carpal tunnel syndrome which required release surgery 2-3 years ago. This EMG/NCS was performed to evaluate for right cervical radiculopathy. Nerve Conduction Studies Summary: The right median-D2 SNAP distal latency was prolonged. Otherwise, nerve conduction studies in the right upper extremity were within normal ranges. Needle Examination Summary: There was a higher proportion of motor unit action potentials with reduced recruitment, increased amplitude, increased duration, and polyphasia in the right extensor carpi ulnaris, first dorsal interosseous, and abductor pollicis brevis muscles. Impression: There is electrodiagnostic evidence of the following - 1) Chronic, right C8 radiculopathy 2) Mild, right median mononeuropathy (carpal tunnel syndrome), with sensory fiber demyelination. Comment: Chronic neurogenic changes were seen in the right abductor pollicis brevis muscle, which can be explained by her prior history of severe carpal tunnel syndrome 2-3 years ago or chronic and/or chronic, right C8 radiculopathy. Multi Select Codes Neurology Neurology Interp Codes: 69649-56 Musc test done w/n test comp (interp) (1) and 18329-38 Nrv cndj test 7-8 studies (interp)
== END | disposition home or self-care (01) ==
LOC: PSN 13:34
PROVIDERS: PCP Internal Medicine; Referring Provider Internal Medicine; Visit Provider Internal Medicine
DX: M54.12 Radiculopathy, cervical region (principal)
CPT/HCPCS: 95886; 95910

== ENCOUNTER → 2023-09-20 | Outpatient (CLI) | payer OTHER, SELFPAY ==
--- NOTE | 2023-09-20 12:49 | NEURO ---
NCS and/or EMG Patient Report Ordering Doctor: Cathryn Rodas DATE OF SERVICE: 09/20/23 Clinical Summary: This is a 63 year old female patient presenting with symptoms of numbness and pain radiating diffusely along both lower extremities. This EMG/NCS was performed to evaluate for right/left lumbosacral radiculopathy and peripheral polyneuropathy. Nerve Conduction Studies Summary: Nerve conduction studies in the bilateral lower extremities were normal. Needle Examination Summary: Needle examination of select muscles of the bilateral lower extremities was normal. Impression: This is a normal study. There is no electrodiagnostic evidence of a large-fiber peripheral polyneuropathy. There is no electrodiagnostic evidence of a right/left lumbosacral radiculopathy. Clinical correlation, however, is advised as this test does not completely rule out the presence of a radiculopathy. Multi Select Codes Neurology Neurology Interp Codes: 28391-79 Musc test done w/n test comp (interp) (2) and 05519-67 Nrv cndj test 7-8 studies (interp)
== END | disposition home or self-care (01) ==
LOC: PSN 12:13
PROVIDERS: PCP Internal Medicine; Referring Provider Internal Medicine; Visit Provider Internal Medicine
DX: M54.12 Radiculopathy, cervical region (principal); M54.16 Radiculopathy, lumbar region
CPT/HCPCS: 95886; 95910

== ENCOUNTER → 2024-01-17 | Outpatient (CLI) | payer OTHER, SELFPAY ==
--- NOTE | 2024-01-17 15:03 | BI_ITS ---
MAMMOGRAPHY - BILATERAL SCREENING REASON FOR EXAM: Female, 63 years old. Routine annual screening examination. PERTINENT HISTORY: Non-contributory. TECHNIQUE: Digital bilateral breast alberto (3D mammographic acquisition) in the CC and MLO projections. 2-D mediolateral oblique (MLO) and craniocaudad (CC) views of both breasts were obtained. CAD: Full Field Digital Mammography with Computer Added Detection was performed. COMPARISON: No comparison mammograms available at this time. If any prior films become available, an addendum to this report can be generated. FINDINGS: Breast Composition: The breasts are heterogeneously dense, which may obscure small masses. There are no dominant masses or suspicious calcifications. Bilateral breast implants are seen. No other significant abnormalities are identified. BI/SCRN MAMM (CAD)W/ALBERTO BILAT IMPRESSION: Negative screening mammogram. Yearly followup mammogram recommended. (A) ASSESSMENT CATEGORY: BIRADS Category 2: Benign. A letter regarding these results will be sent to the patient by the facility within 30 days. Approximately 10% of breast cancers are not detected by mammography. A normal mammogram should not delay biopsy of a clinically suspicious abnormality. [id number] Electronically Signed: Andre Ng MD at 13:01 EDT ,
== END | disposition home or self-care (01) ==
LOC: OPBI 15:03
PROVIDERS: PCP Internal Medicine; Referring Provider Obstetrics & Gynecology; Visit Provider Obstetrics & Gynecology
DX: Z12.31 Encounter for screening mammogram for malignant neoplasm of breast (principal)
CPT/HCPCS: 77063; 77067

== ENCOUNTER → 2024-02-16 | Outpatient (CLI) | payer OTHER, SELFPAY ==
[2024-02-16 17:43] LABS: Absolute Lymphocyte Count 2.41 X10^3/uL (0.83-4.51); Basophil# 0.04 X10^3/uL; Basophil% 0.6 % (0-1); Eosinophil# 0.08 X10^3/uL; Eosinophils% 1.1 % (0-5); Hematocrit 42.4 % (37-47); Hemoglobin 14.1 g/dL (12.0-15.0); Lymphocyte # 2.41 X10^3/ul (0.83-4.51); Lymphocyte % 34.2 % (19-41); Mean Corp Hgb Conc 33.3 g/dL (32-36); Mean Corpuscular Hgb 29.9 pg (27.0-32.0); Mean Platelet Vol. 11.1 fl (6.2-12.0); Monocyte# 0.53 X10^3/uL; Monocyte% 7.5 % (0-10); NRBC Flagged by Analyzer 0 % (0-5); Neutrophil # 3.97 X10^3/uL (2.7-7.7); Neutrophil % 56.5 % (47-70); Platelet Count 265 K/mm3 (150-450); RBC Distribution Width CV 13.2 % (11.6-14.6); RBC Distribution Width SD 43.4 fl (35.1-43.9); Red Blood Count 4.71 M/mm3 (4.2-5.4)
[2024-02-16 17:55] LABS: Vitamin B12 726 pg/mL (211-911); Vitamin D,25 Hydroxy 32.5 ng/mL
[2024-02-16 18:08] LABS: ALB/GLOB Ratio 0.9 RATIO (0.9-2.4); AST(SGOT) 27 U/L (15-37); Alanine Aminotransfer ALT/SGPT 38 U/L (13-56); Albumin, Serum 3.6 g/dL (3.2-5.0); Alkaline Phosphatase 89 U/L (45-117); Anion Gap 6 (5-15); BUN 26 mg/dL (7-18); BUN/Creat Ratio 35.2 RATIO (10-20); Calcium,Total 8.7 mg/dL (8.5-10.1); Chloride 109 mmol/L (98-107); Cholesterol 198 mg/dL (200); Creatinine, Serum 0.74 mg/dL (0.55-1.02); EST Glomerular Filtration Rate 84 mL/min (>60); Est Glom Filt Rate - Afr Amer 102 mL/min (>60); Globulin 3.9 g/dL (2.2-4.2); Glucose 84 mg/dL (74-106); High Density Lipoprotein 69 mg/dL; Potassium 3.5 mmol/L (3.5-5.1); Protein, Total 7.5 g/dL (6.4-8.2); Sodium Level 138 mmol/L (136-145); T4 Free Direct 1.12 ng/dL (0.76-1.46); Thyroid Stim Hormone (TSH) 2.51 uIU/mL (0.358-3.74); Triglycerides 61 mg/dL; Very Low Density Lipoprotein 12 mg/dL (5-40)
[2024-02-18 04:08] LABS: Thyroid Peroxidase AB < 9 IU/mL (0-34)
== END | disposition home or self-care (01) ==
LOC: MTLAB 15:21
PROVIDERS: PCP Internal Medicine; Referring Provider Internal Medicine; Visit Provider Internal Medicine
DX: E03.9 Hypothyroidism, unspecified (principal); E78.5 Hyperlipidemia, unspecified; E55.9 Vitamin D deficiency, unspecified; R41.3 Other amnesia
CPT/HCPCS: 36415; 80053; 80061; 82306; 82607; 84439; 84443; 84481; 85025; 86376

== ENCOUNTER → 2024-05-31 | Outpatient (CLI) | payer OTHER, SELFPAY ==
[2024-05-31 15:52] LABS: T4 Free Direct 1.24 ng/dL (0.76-1.46); Thyroid Stim Hormone (TSH) 0.859 uIU/mL (0.358-3.740)
== END | disposition home or self-care (01) ==
PROVIDERS: PCP Internal Medicine; Referring Provider Internal Medicine; Visit Provider Internal Medicine
DX: E03.9 Hypothyroidism, unspecified (principal)
CPT/HCPCS: 36415; 84439; 84443

== ENCOUNTER 2024-10-31 15:30 | Outpatient (RCR) | payer MEDICARE, OTHER, SELFPAY ==
--- NOTE | 2024-07-11 09:29 | HP.PTEVAL_ITS ---
Patient's Visit Information Visit Information Visit Information: DAT TREADWELL is a 63 year old F referred to Physical Therapy by Dr. Loco Dash MD with a diagnosis of Cervical radiculopathy. Date of Evaluation: 07/10/24 Physical Therapist: Chet Bhakta DPT Visit Plan Frequency: 2x /Week Duration: 6 Weeks Plan: Start with IASTIM to L UT and cervical retraction. Add lumbar extension progression. HS and hip flexor stretching. Pt. is progressing gym exercises as tolerated. Subjective Subjective: Pt. is here today for her initial evaluation with diagnosis of cervical radiculopathy. Pt. reports having on/off pain for a few years. She has had some relief with injections in the past. Recently had an injection in her low back for lumbar radicular symptoms. Pt. reports having L sided neck pain into her L UT that does radiate down her L UE to her thumb and first finger region. pt. is also dealing with increased L sided leg pain near lateral distal HS region. Pt. reports mornings are painful. She has intermittent pain in both UE and LE, both on L side. Pt. reports no sudden weakness in either LE or UE. Pt. has been working out with personal protection specialist with good tolerance. This does not seem to be increasing her symptoms, both were bothering her prior to starting this. Pt. has had injections in the past with good tolerance. Pt. is hopeful to reduce symptoms in order to complete all recreational activities without limitations. Pain L UT: Pain Intensity (Out of 10): 2 Pain Intensity Range: 0 and 6 Cervical spine: Pain Intensity (Out of 10): 2 Pain Intensity Range: 1 and 6 L posterior distal LE (knee region): Pain Intensity (Out of 10): 5 Pain Intensity Range: 2 and 9 Objective Objective: POSTURE: Pt. has slight FH posture. Normal B shoulder heights noted. Pt. has slight increase in thoracic kyphosis. She also has slight slouched posture. PALPATION: Pt. has slight tenderness along lower cervical spine with PAs. Pt. has tenderness at L UT with firm pressure. Pt. has no pain with palpation of eliezer mbar spine with PAs. NEURO: Pt. has normal sensation in BUE and BLEs. Pt. has normal DTR x4 UEs. Pt. is able to rise on heels and toes without issues. ROM: LUMBAR SPINE: flexion min/nil loss NE, ext mod loss NE, SB min loss B NE, rotation min loss bilat increase NW. Pt. has very tight HS and hip flexors. CERVICAL SPINE: flexion min loss NE, ext mod loss increase NW, rotation mod loss B increase NW, SB mod loss B NE. Pt. has good B hip ROM without increase in symptoms. MMT: Pt. has good strength throughout BUEs and BLEs. Fair core strength noted. Special Tests C/S Radiculapathy - Left Upper limb tension test: Negative C/S Radiculapathy - Right Upper limb tension test: Negative C/S Radiculapathy - Left Spurlings: Negative C/S Radiculapathy - Right [place]: Negative C/S Radiculapathy - Left Cervical distraction: Negative C/S Radiculapathy - Right Cervical distraction: Negative C/S Radiculapathy - Left Relief test: Negative C/S Radiculapathy - Right Relief test: Negative C/S Radiculapathy - Valsalva: Negative Cervical Sitting: Protrusion - Mechanical Response: No effect Cervical Sitting: Protrusion - Symptoms During Testing: No effect Cervical Sitting: Protrusion - Symptoms After Testing: No effect Cervical Sitting: Retraction - Mechanical Response: No effect Cervical Sitting: Retraction - Symptoms During Testing: Decreases Cervical Sitting: Retraction - Symptoms After Testing: No better Cervical Sitting: Sidebend Right - Mechanical Response: No effect Cervical Sitting: Sidebend Right - Symptoms During Testing: No effect Cervical Sitting: Sidebend Right - Symptoms After Testing: No effect Cervical Sitting: Sidebend Left - Mechanical Response: No effect Cervical Sitting: Sidebend Left - Symptoms During Testing: No effect Cervical Sitting: Sidebend Left - Symptoms After Testing: No effect Cervical Sitting: Rotation Right - Mechanical Response: No effect Cervical Sitting: Rotation Right - Symptoms During Testing: No effect Cervical Sitting: Rotation Right - Symptoms After Testing: No effect Cervical Sitting: Rotation Left - Mechanical Response: No effect Cervical Sitting: Rotation Left - Symptoms During Testing: No effect Cervical Sitting: Rotation Left - Symptoms After Testing: No effect Cervical Sitting: Flexion - Mechanical Response: No effect Cervical Sitting: Flexion - Symptoms During Testing: No effect Cervical Sitting: Flexion - Symptoms After Testing: No effect L/S Slump test left side: Positive L/S Slump test right side: Negative L/S Left Straight Leg Raise: Negative L/S Right Straight Leg Raise: Negative Balance/Special Test Scores Oswestry Neck Score: 28 Goals Goal 1:: LTG: Pt. to be I with HEP. Goal Time Frame: 4-6 Weeks Goal 2:: STG: Pt. sleep throughout the night with decreased neck and leg pain to 0-2/10. Goal Time Frame: 2-4 Weeks Goal 3:: LTG: pt. to complete all ADLs without increase in UE and LE pain. Goal Time Frame: 4-6 Weeks Goal 4:: LTG: Pt. to have full cervical and lumbar ROM without increase in symptoms. Goal Time Frame: 4-6 Weeks Rehabilitation Potential Physical Therapy Diagnosis: Pt. has signs and symptoms consistent with cervical radiculopathy. Pt. has radicular signs of both cervical spine and lumbar spine down the L side. She is overall very tight throughout Rehabilitation Potential: Good Anticipated Interventions Patient/Client Instruction: Educate patient on: Condition, Plan of Care, Risk Factors and Benefits of Fitness Program For the Purpose of:: To foster healthy habits, To improve decision making, To facilitate caregiver knowledge, To improve self management, To prevent re-injury and To improve ability to perform tasks related to life management Therapeutic Exercise to Include: Strength training, Power training, Body mechanics, Postural training, Passive ROM, Active ROM and Scapular Strength/Stabilization For the Purpose of:: To decrease pain, To increase ROM, To improve nutrient delivery to tissue, To increase oxygenation perfusion, To improve muscle performance and motor function, To improve gait and locomotor functions, To improve health of tissue, To decrease soft tissue restriction and To increase flexibility/ROM Manual Therapy Techniques to Include: Soft tissue mobilization For the Purpose of:: To increase tolerance to activity/condition/position, To improve performance and independence with ADL's, To improve health of tissue, To decrease soft tissue restriction and To increase flexibility/ROM Text: Thank you for the opportunity to evaluate your patient. For Medicare and Medicare HMO plans, please review the plan of care and approve it. It will need to be FAXED BACK to us at [phone] for Medicare purposes. For Medicare only, by signing this I certify the plan of care. Please let me know if there are questions or concerns regarding this plan of ca re. Physician Signature: Date:
--- NOTE | 2024-08-28 15:44 | HP.OTEVAL_ITS ---
Patient's Visit Information Visit Information Visit Information: DAT TREADWELL is a 64 year old F, referred to Occupational Therapy by Dr. Loco Dash MD, with a diagnosis of carpal tunnel, radic cervical region. Date of Evaluation: 08/28/24 Occupational Therapist: Mary Tello Subjective Subjective: This 64 year old female arrives with with complaints of L hand RF stiffness decreased ROM. R hand cramping occasionally throughout the day impacting ability to performs self care tasks. pt reports she has had carpal tunnel release to B hands and a revision complete to the R hand. Pt is R hand dominant. Pt is unable to ID when cramping occurs at this time however states L hand RF pain comes and goes with intensity during movement functional tasks. Pain R hand: Current Pain Intensity: 8 L RF: Current Pain Intensity: 3 ROM Wrist: L 45/20 R 45/30 Opposition: wfl PIP: L RF -8/95 R RF 102 DIP: L RF 45 R RF 65 ROM Comments: pt is R hand dominant R compsoite fist Strength Hide Selector: R 35# L 25# Lateral Pinch: R 5# L 5# Tripod Pinch: R 5# L 5# Strength Comments: reports she drops items all the time Sensation Sensation Comments: L hand wfl R hand 3.22 diminished light touch Quick DASH-Disab of Arm,Shoulder& Hand Quick DASH Score: 36.3625 Goals Goal:: pt will improve L nursing surgical services director strength equal to or greater than R hand in order to improve daily functional tasks Goal:: Pt will improve L hand RF flexion to make full composite fist PIP and DIP ROM equal to or greater than RUE in order to improve day to day functional tasks Goal:: pt will report 1/10 pain of B hands or less during movement/ functional tasks Goal:: pt will verbalize/ demonstrate 100% accuracy in proper joint positioning and protection techniques to decrease R hand cramping during functional tasks Goal:: pt will improve quick dash score by 5 points or more (36.36) in order to maximize functional use of B hands Goal:: pt will report reduction in overall R hand cramping to 1x a week or less in order to improve functional use of R hand during day to day tasks Rehabilitation General Assessment: This 64 year old female arrives marichuy dx of B hand carpal tunnel, radic cervical region. Pt presents with limitations of ROM in L wrist as well as RF and occasionally stiffening and cramping of R hand. Pt with decreased nursing surgical services director strength and increased pain of B hands indicating need for OT intervention 1-2x a week for for 4-6 weeks in order to decrease pain and maximize function. Rehabilitation Potential: Good Anticipated Interventions Anticipated Interventions: A/AAROM/PROM, Strengthening, Triggerpoint Release, Modalities, Orthoses, Joint Protection/Energy Conservation, ADL Training, Education re assistive Equipment, Education re Diagnosis and Home Program Visit Plan Frequency: 1-2x /Week Duration: 4-6 Weeks General Plan: AROM/AAROM/PROM trigger point massage pain management strengthening TEXT: Thank you for the opportunity to evaluate your patient. For Medicare and Medicare HMO plans, please review the plan of care and approve it. It will need to be FAXED BACK to us at [phone] for Medicare purposes. Please let me know if there are questions or concerns regarding this plan of care. Physician Signature: Date:
--- NOTE | 2024-11-01 12:03 | HP.OTREVAL ---
Re-Evaluation Intro: Dr. Loco Dash MD, It has been my pleasure to treat DAT TREADWELL over the last 9 visits for carpal tunnel, radic cervical region. Please see the progress note below for an update on the occupational therapy plan of care! Subjective Subjective: arrives doing well no new concerns. states she would like to continue therapy feels it helps had to [facility] slip to sched additional visits. Objective Objective/Function: slip to front for additional visits extended pt for next 2-3 weeks 2x a week to focus on joint protection and positioning as well as gentle strengthening for improved functional use of hands-- pt is going to be looking into specialists at this time for possible R wrist carpal tunnel revision Plan Plan Frequency: 1-2x /Week Duration: 2-3 weeks Plan: trigger point tendon glide ROM strengthening extended for 2x a week for 2-3 weeks Goals Goals Patient Goals: Regain Strength, Decrease Pain, Decrease Swelling/Stiffness, Use Hand/Wrist/Arm Normally Again, Decrease Tingling/Numbness, Increase ROM, Be More Independent in ADLS, Resume Former Household Responsibilities (Cooking,Cleaning,Yard, etc.) and Resume Hobbies Goal:: pt will improve L psychometrist strength equal to or greater than R hand in order to improve daily functional tasks to measure at next appointment -- time constraint this date Goal:: Pt will improve L hand RF flexion to make full composite fist PIP and DIP ROM equal to or greater than RUE in order to improve day to day functional tasks unable ot make composite fist at this time progressing Goal:: pt will report 1/10 pain of B hands or less during movement/ functional tasks --- pt generally is not painful however does have instances of pain that cause severe pain and cramping --- ongoing Goal:: pt will verbalize/ demonstrate 100% accuracy in proper joint positioning and protection techniques to decrease R hand cramping during functional tasks ongoing to focus on with next coming sessions Goal:: pt will improve quick dash score by 5 points or more (36.36) in order to maximize functional use of B hands Goal:: pt will report reduction in overall R hand cramping to 1x a week or less in order to improve functional use of R hand during day to day tasks ongoing still states she has cramping at least 1x a week typically more Anticipated Interventions Anticipated Interventions Anticipated Interventions: A/GUSTAVOOM/PROM, Strengthening, Triggerpoint Release, Modalities, Orthoses, Joint Protection/Energy Conservation, ADL Training, Education re assistive Equipment, Education re Diagnosis and Home Program Re-Evaluation Ending Re-evaluation ending: Please do not hesitate to contact me at [phone] by phone or if you have questions or concerns regarding this new plan of care! Sincerely, Mary Tello
--- NOTE | 2024-11-07 13:02 | HP.OTDCSUM_ITS ---
Discharge Summary D/C Summary: It has been my pleasure to treat DAT TREADWELL under orders from Dr. Loco Dash MD, for the diagnosis of carpal tunnel, radic cervical region for a total of 9 visit(s). Please see the following information for a summary of their discharge status. Objective Objective/Function: discharge current chart at this time. pt is going to be looking into specialists at this time for possible R wrist carpal tunnel revision going to get nerve conduction study to address. pt getting new order from dx to address separate issue. Goals Patient Goals: Regain Strength, Decrease Pain, Decrease Swelling/Stiffness, Use Hand/Wrist/Arm Normally Again, Decrease Tingling/Numbness, Increase ROM, Be More Independent in ADLS, Resume Former Household Responsibilities (Cooking,Cleaning,Yard, etc.) and Resume Hobbies Goal:: pt will improve L medical reviewer strength equal to or greater than R hand in order to improve daily functional tasks to measure at next appointment -- time constraint this date Goal:: Pt will improve L hand RF flexion to make full composite fist PIP and DIP ROM equal to or greater than RUE in order to improve day to day functional tasks unable ot make composite fist at this time progressing Goal:: pt will report 1/10 pain of B hands or less during movement/ functional tasks --- pt generally is not painful however does have instances of pain that cause severe pain and cramping --- ongoing Goal:: pt will verbalize/ demonstrate 100% accuracy in proper joint positioning and protection techniques to decrease R hand cramping during functional tasks ongoing to focus on with next coming sessions Goal:: pt will improve quick dash score by 5 points or more (36.36) in order to maximize functional use of B hands Goal:: pt will report reduction in overall R hand cramping to 1x a week or less in order to improve functional use of R hand during day to day tasks ongoing still states she has cramping at least 1x a week typically more Plan Plan: trigger point tendon glide ROM strengthening D/C Information Discharge Comments: this 64 year old female seen by OT with dx of carpal tunnel. pt has progressed in POC however discharge at this time due to getting new dx code from doctor to address different issue pt is concerned about. pt is getting nerve conduction test of B hands and surgery to address her carpal tunnel. d/c sentence: If there are questions or concerns regarding this patient's occupational therapy, please fell free to call me at [phone]. Thank you for the referral of this patient. Sincerely, Mary Tello
--- NOTE | 2024-11-07 13:02 | HP.OT.NRP ---
Patient Information Patient Information: DAT TREADWELL was seen in my office for initial evaluation on 08/28/24. The following Plan of Care was established for this patient: POC Established Initial Frequency: 1-2x /Week Initial Duration: 2-3 weeks Plan: trigger point tendon glide ROM strengthening extended for 2x a week for 2-3 weeks Anticipated Interventions Anticipated Interventions: A/AAROM/PROM, Strengthening, Triggerpoint Release, Modalities, Orthoses, Joint Protection/Energy Conservation, ADL Training, Education re assistive Equipment, Education re Diagnosis and Home Program Last Seen Last Seen: This patient was last seen in our office 10/31/24. Pertinent comments regarding their Occupational therapy will appear below: This 64 year old female seen for OT with dx of carpal tunnel. discharging this chart at this time. pt has made decision to get nerve conduction test for B hands and then proceed with surgery pending results of nerve conduction study. Pt progressed throughout POC. pt getting new order from doctor to address separate issue. Pt in agreeance. At this point I will be discontinuing this patient from occupational therapy. I would be happy to see this patient again in the future if found appropriate by the physician. Thank you! Mary Tello
== END 2024-10-31 19:00 | disposition home or self-care (01) ==
LOC: OT 15:30
PROVIDERS: PCP Internal Medicine; Referring Provider Anesthesiology Pain Medicine; Visit Provider Anesthesiology Pain Medicine
DX: G56.00 Carpal tunnel syndrome, unspecified upper limb (principal); M79.641 Pain in right hand; M67.89 Other specified disorders of synovium and tendon, multiple sites; M50.30 Other cervical disc degeneration, unspecified cervical region; M54.12 Radiculopathy, cervical region
CPT/HCPCS: 97035; 97110; 97140; 97161; 97165; 97530

== ENCOUNTER → 2024-11-09 | Outpatient (CLI) | payer MEDICARE, OTHER, SELFPAY ==
[2024-11-09 10:44] LABS: Absolute Lymphocyte Count 1.99 X10^3/uL (0.83-4.51); Absolute Neutrophil Count 2.4 X10^3/uL (2.0-7.7); Basophil# 0.03 X10^3/uL; Basophil% 0.6 % (0-1); Eosinophil# 0.18 X10^3/uL; Eosinophils% 3.6 % (0-5); Hematocrit 42.3 % (37-47); Hemoglobin 13.8 g/dL (12.0-15.0); Lymphocyte # 1.99 X10^3/ul (0.83-4.51); Mean Corp Hgb Conc 32.6 g/dL (32-36); Mean Corpuscular Hgb 30.3 pg (27.0-32.0); Mean Platelet Vol. 10.8 fl (6.2-12.0); NRBC Flagged by Analyzer 0 % (0-5); Neutrophil # 2.37 X10^3/uL (2.7-7.7); Neutrophil % 47.6 % (47-70); Platelet Count 250 K/mm3 (150-450); RBC Distribution Width CV 13.8 % (11.6-14.6); Red Blood Count 4.55 M/mm3 (4.2-5.4)
[2024-11-09 10:59] LABS: Vitamin D,25 Hydroxy 62.4 ng/mL
[2024-11-09 11:51] LABS: ALB/GLOB Ratio 0.9 RATIO (0.9-2.4); AST(SGOT) 21 U/L (15-37); Alanine Aminotransfer ALT/SGPT 30 U/L (13-56); Albumin, Serum 3.6 g/dL (3.2-5.0); Alkaline Phosphatase 95 U/L (45-117); Anion Gap 5 (5-15); BUN 20 mg/dL (7-18); Calcium,Total 8.8 mg/dL (8.5-10.1); Chloride 111 mmol/L (98-107); Cholesterol 234 mg/dL (200); Creatinine, Serum 0.77 mg/dL (0.55-1.02); EST Glomerular Filtration Rate 80 mL/min (>60); Est Glom Filt Rate - Afr Amer 97 mL/min (>60); Free T3 2.9 pg/mL (2.18-3.98); Globulin 3.9 g/dL (2.2-4.2); Glucose 83 mg/dL (74-106); High Density Lipoprotein 75 mg/dL; Potassium 3.6 mmol/L (3.5-5.1); Protein, Total 7.5 g/dL (6.4-8.2); Sodium Level 142 mmol/L (136-145); Triglycerides 81 mg/dL; Very Low Density Lipoprotein 16 mg/dL (5-40)
[2024-11-12 12:56] LABS: Vitamin B12 752 pg/mL (211-911)
== END | disposition home or self-care (01) ==
PROVIDERS: PCP Internal Medicine; Referring Provider Internal Medicine; Visit Provider Internal Medicine
DX: R25.1 Tremor, unspecified (principal); R79.89 Other specified abnormal findings of blood chemistry; E55.9 Vitamin D deficiency, unspecified; E78.1 Pure hyperglyceridemia; R41.3 Other amnesia
CPT/HCPCS: 36415; 80053; 80061; 82306; 82607; 84443; 84481; 85025

== ENCOUNTER → 2024-11-21 | Outpatient (CLI) | payer MEDICARE, OTHER, SELFPAY ==
--- NOTE | 2024-11-21 15:13 | NEURO ---
NCS and/or EMG Patient Report Ordering Doctor: Cathryn Rodas DATE OF SERVICE: 11/21/24 Renee presents with complaints of cramping in both hands. She has pain in the upper arms. She reports frequently dropping objects. She has a history of carpal tunnel release bilaterally. Electrodiagnostic findings: Right median motor nerve demonstrates normal distal latency, amplitude and conduction velocity. Left median motor nerve demonstrates normal distal latency, amplitude and conduction velocity. Ulnar motor responses within normal limits bilaterally. Normal median and ulnar F?waves. Normal right median sensory latency at the wrist. Normal left median sensory response. Ulnar radial sensory responses are normal. Needle EMG testing was performed in the upper limbs. All muscles tested showed no evidence of denervation with normal motor unit action potentials. Electrodiagnostic impression: This is an abnormal study. 1. Electrodiagnostic evidence suggestive of right-sided median mononeuropathy. This consistent with a mild right carpal tunnel syndrome 2. There is no electrodiagnostic evidence for left-sided carpal tunnel syndrome. 3. There is no electrodiagnostic evidence for brachial plexopathy or cervical radiculopathy. Multi Select Codes Neurology Neurology Interp Codes: 99137-21 Musc test done w/n test comp (interp) (2) and 42996-90 Nrv cndj test 11-12 studies (interp)
== END | disposition home or self-care (01) ==
LOC: PSN 13:34
PROVIDERS: PCP Internal Medicine; Referring Provider Internal Medicine; Visit Provider Internal Medicine
DX: M79.641 Pain in right hand (principal)
CPT/HCPCS: 95886; 95912

== ENCOUNTER → 2025-01-17 | Outpatient (CLI) | payer MEDICARE, OTHER, SELFPAY ==
--- NOTE | 2025-01-17 14:20 | LES_PTH ---
PATIENT: DAT TREADWELL LOC: [facility] U#:[id number] AGE/SX: 64/F ROOM: RE01/17/[address]: Dr. Cathryn Rodas DO : 1960 BED: DIS: 01/17/2025 SPEC #: [id number] RECD: 01/18/25 11:11 STATUS: ARMIN JANE #: [id number] [place]: 01/17/25 14:[address]: Talya Vargas DEPT: SURGICAL PATHOLOGY RECD BY: Luis Phillips ENTERED: 01/18/25 11:12 SP TYPE: Lesion OTHR DR: Dr. Cathryn Rodas DO Tissues: A - Skin of vulva Procedures: Surgery Specimen Level III HEADER OPERATION: Vulvar lesion PRE-OP DIAGNOSIS: Vulvar lesion TISSUE SUBMITTED: A- Vulva MICROSCOPIC DIAGNOSIS A. Skin, vulva, shave biopsy: - Polypoid skin fragment consistent with acrochordon (skin tag), benign. MICROSCOPIC DESCRIPTION Slides are reviewed. GROSS DESCRIPTION A. Received in formalin in a container labeled with the patient's name, date of , and with the accompanying paperwork indicating, vulvar lesion is an unoriented and elliptical skin shave measuring 0.6 x 0.2 cm with a depth of 0.1 cm. The turpin epidermis is notable for 0.3 x 0.2 x 0.2 cm turpin and wrinkled polypoid-like projection situated less than 0.1 cm from the peripheral margin. The deep margin is inked green, and the specimen is bisected to reveal that the polypoid-like projection exhibits white-bonner surfaces that appear confined to the epidermis. Submitted entirely in A1. [facility] 01-18-2025 CPT:81134
--- NOTE | 2025-01-17 14:46 | BI_ITS ---
EXAM: SCRN MAMM (CAD)W/ALBERTO BILAT DATE: 01/17/2025 CLINICAL HISTORY: F, Age 64 y/o , SCREENING No family history. History of bilateral breast implants. BREAST CANCER RISK ASSESSMENT: Not assessed. TECHNIQUE: Bilateral screening digital breast tomosynthesis with 2D and 3D images. Computer aided detection. COMPARISON: Prior exam(s) dated January 17, 2024.. FINDINGS: TISSUE DENSITY: The breast tissue is composed of scattered area of fibroglandular density. Bilateral Breast Mammographic Findings: No significant masses, calcifications or other abnormalities are identified. Stable appearance of the bilateral breast implants. BI/SCRN MAMM (CAD)W/ALBERTO BILAT IMPRESSION: Right Breast: BIRADS 2 BENIGN FINDING. Left Breast: BIRADS 2 BENIGN FINDING. OVERALL FINAL ASSESSMENT: BIRADS 2 BENIGN FINDING RECOMMENDATION: Routine annual follow-up in 1 Year A letter with findings and recommendations will be mailed to the patient. Reading Location: [place] [id number]
[2025-01-22 16:09] LABS: HPV APTIMA, High Risk Negative (Negative)
== END | disposition home or self-care (01) ==
PROVIDERS: Obstetrics & Gynecology; PCP Internal Medicine; Referring Provider Internal Medicine; Visit Provider Internal Medicine
DX: Z12.31 Encounter for screening mammogram for malignant neoplasm of breast (principal); Z12.4 Encounter for screening for malignant neoplasm of cervix; Z98.82 Breast implant status; N90.89 Other specified noninflammatory disorders of vulva and perineum
CPT/HCPCS: 77063; 77067; 87624; 88175; 88304; 88305; G0145

== ENCOUNTER 2025-01-22 06:43 | Outpatient (CLI) | payer MEDICARE, OTHER, SELFPAY ==
--- NOTE | 2025-01-22 07:00 | BD_ITS ---
PROCEDURE: DEXA BONE DENSITY STUDY REASON FOR EXAM: OSTEOPENIA TECHNIQUE: DEXA scan of the lumbar spine and left hip, using a Hologic Horizon W unit. REFERENCE LINKS: ISCD Adult Positions COMPARISON: None FINDINGS: LUMBAR SPINE: Bone mineral denisty, L1-L4: 0.905 g/cm??? T-score: -1.3 LEFT FEMORAL NECK: Bone mineral denisty: 0.686 g/cm??? T-score: -1.5 LEFT TOTAL HIP: Bone mineral denisty: 0.810 g/cm??? T-score: -1.1 RIGHT FEMORAL NECK: Bone mineral denisty: 0.658 g/cm??? T-score: -1.7 RIGHT TOTAL HIP: Bone mineral denisty: 0.844 g/cm??? T-score: -0.8 FRAX*: 10 Year Probability of Fracture: Major Osteoporotic Fracture(1): 15.0% Hip Fracture(2): 2.1% *FRAX is a trademark of the [employer]'s [place] for Metabolic Bone Disease, World Health Organization (WHO) Collaborating [place]. 1-Major Osteoporotic Fracture: Clinical Spine, Forearm, Hip or Shoulder. 2-The 10-year probability of fracture may be lower than reported if the patient has received treatment. The National Osteoporosis Foundation recommends that medical therapy be considered in postmenopausal women and men, age 50 and older, with a: * hip or vertebral fracture * T-score less than or equal to -2.5 in the spine or hip * T-score between -1.0 and -2.5 and FRAX equal to or less than 3 percent for hip fracture or equal to or less than 20 percent for major osteoporotic fracture. World Health Organization criteria for BMD interpretation classify patients as Normal (T-score at or above -1.0), Osteopenic (T-score between -1.0 and -2.5), or Osteoporotic (T-score at or below -2.5). BD/Dexa Bone Density Study IMPRESSION: 1. Osteopenia. 2. No prior exams are available for comparison. 3. Additional description as above. Reading Location: [id number]
== END 2025-01-22 23:59 | disposition home or self-care (01) ==
LOC: OPBD 06:50
PROVIDERS: PCP Internal Medicine; Referring Provider Obstetrics & Gynecology; Visit Provider Obstetrics & Gynecology
DX: M85.80 Other specified disorders of bone density and structure, unspecified site (principal); Z78.0 Asymptomatic menopausal state
CPT/HCPCS: 77080

== ENCOUNTER 2025-01-23 15:30 | Outpatient (RCR) | payer MEDICARE, OTHER, SELFPAY ==
--- NOTE | 2024-11-07 13:34 | HP.OTEVAL ---
Patient's Visit Information Visit Information Visit Information: DAT TREADWELL is a 64 year old F, referred to Occupational Therapy by Dr. Cathryn Rodas DO, with a diagnosis of Arthritis and R hand pain. Date of Evaluation: 11/07/23 Occupational Therapist: Mary Tello Subjective Subjective: This 64 year old female arrives with new dx code of arthritis as well as R hand pain. Pt seen previously for dx of carpal tunnel however ended this track due to pt decision to get nerve conduction study followed by surgery pending the results. Pt now concerned about arthritis of B hands stating they are getting very stiff and more difficult to use throughout the day. Currently the L hand is worse than the R. Pt is R hand dominant. Pt would like to learn techniques to aid in managing arthritis, joint protection and conservation techniques. Pain L hand: Current Pain Intensity: 7 Pain Intensity Range: 7 Objective Objective/Observation: pt arrives this date stating L hand painful and stiff. states R hand is stiff however not as bad as L hand currently. ROM Shoulder: wfl Elbow: wfl Forearm: wfl Wrist: wfl Opposition: wfl ROM Comments: pt does demonstrate the ability to make full composite fist this date with B hands however states they feel stiff and painful Strength Technical Sales Consultant: R 35# L 25# Lateral Pinch: R 5# L 5# Tripod Pinch: R 5# L5# Sensation Sensation Comments: L hand wfl R hand 3.22 indicating diminished light touch Quick DASH-Disab of Arm,Shoulder& Hand Quick DASH Score: 27.2725 Goals Goal:: pt will improve strength of L hand equal to or greater than less affected R hand in order to improve day to day tasks and decrease dropping of items Goal:: pt will report L hand pain 1/10 or less during use in order to improve day to day functional use of L hand Goal:: pt will verbalize/ demonstrate 100% accuracy in proper joint protection and positioning techniques to decrease pain of hands and improve functional use Goal:: pt will improve quick dash score by 10 points or more in order to return to functional use of hands on day to day basis Goal:: Pt will verbalize/ demonstrate 100% carryover in use of proper gloves/ bracing in order to promote joint protection as well as pain management pt will be able to verbalize/ demonstrate use of x3 different adaptive tools in order to decrease pain in hands and improve functional use Rehabilitation General Assessment: This 64 year old female arrives after seeing Doctor with new dx code of arthritis as well as R hand pain. Pt with increased pain in L hand versus right at this time. pt would benefit from training in joint protection and conservation techniques. pt would also benefit from ed on adaptive equipment and tools to assure proper joint protection. Possible bracing and or use of gloves for hand pain and protection. gentle strengthening to assure joint stability and reduce muscle atrophy. Pt would benefit from 1-2 session per week for 4-6 weeks Rehabilitation Potential: Good Anticipated Interventions Anticipated Interventions: A/AAROM/PROM, Strengthening, Triggerpoint Release, Modalities, Orthoses, Joint Protection/Energy Conservation, Ergonomic Education, Education re assistive Equipment, Education re Diagnosis and Home Program Visit Plan Frequency: 1-2x /Week Duration: 4-6 Weeks General Plan: joint protection and positioning ergonomics pain management possible bracing or glove wear gentle strengthening training in adaptive tools for joint protection TEXT: Thank you for the opportunity to evaluate your patient. For Medicare and Medicare HMO plans, please review the plan of care and approve it. It will need to be FAXED BACK to us at [phone] for Medicare purposes. Please let me know if there are questions or concerns regarding this plan of care. Physician Signature: Date:
--- NOTE | 2025-06-27 09:13 | HP.OT.NRP ---
Patient Information Patient Information: DAT TREADWELL was seen in my office for initial evaluation on 11/07/23. The following Plan of Care was established for this patient: POC Established Initial Frequency: 1-2x /Week Initial Duration: 4-6 Weeks Plan: AROM, AAROM, PROM isometric strengthening pain management bracing stretching Anticipated Interventions Anticipated Interventions: A/AAROM/PROM, Strengthening, Triggerpoint Release, Modalities, Orthoses, Joint Protection/Energy Conservation, Ergonomic Education, Education re assistive Equipment, Education re Diagnosis and Home Program Last Seen Last Seen: This patient was last seen in our office 01/23/25. Pertinent comments regarding their Occupational therapy will appear below: This 64 year old female seen by OT for dx of arthritis as well as R hand pain. pt seen for eval and then 4 additional visits. progress made in POC with pain and improved functional use. discharge from OT at this time due to lapse in time of services. At this point I will be discontinuing this patient from occupational therapy. I would be happy to see this patient again in the future if found appropriate by the physician. Thank you! Mary Tello
== END 2025-01-23 19:00 | disposition home or self-care (01) ==
LOC: OT 15:30
PROVIDERS: PCP Internal Medicine; Visit Provider Internal Medicine
DX: M13.841 Other specified arthritis, right hand (principal); M79.641 Pain in right hand
CPT/HCPCS: 97035; 97140; 97165; 97530

== ENCOUNTER 2025-05-15 15:00 | Outpatient (RCR) | payer MEDICARE, OTHER, SELFPAY ==
--- NOTE | 2024-12-31 15:58 | HP.PTEVAL_ITS ---
Patient's Visit Information Visit Information Visit Information: DAT TREADWELL is a 64 year old F referred to Physical Therapy by James Arambula MD with a diagnosis of L TKA DOS 12/26/24. Date of Evaluation: 12/28/24 Physical Therapist: Chet Bhakta DPT Visit Plan Frequency: 3x /Week Duration: 6 Weeks Plan: 1) L knee ROM progression to 0-0-120deg. 2) edema control with vaso and ice 3) knee joint mobs to aid in ROM progression 4) functional strengthening 5) gait progression and stair negotiation. Subjective Subjective: Pt. is here today for her initial evaluation with diagnosis of L TKA, DOS: 12/26/24. Pt. reports overall doing well. She arrives with spouse iwth use of FWW. Pt. reports being sore, but not terrible. Pt. reports 4/10 pain in L knee. Pt. is having difficulty with sleeping. She has been following all of her exercises as prescribed. Pt. denies N/T in either LE. Pt. reports no calf pain, no fever, and no chest pains. She has been walking around the house without much issues. Pt. is hopeful to get back to all recreational activities without limitations. Pain R knee: Pain Intensity (Out of 10): 4 Pain Intensity Range: 2 and 7 Objective Objective: POSTURE: Pt. has normal posture in stance. Pt. has slight loss of L TKE in stance. Slight wt. shift to R side in stance. PALPATION: Pt. has negative homans sign. Pt. has marked bruising throughout LLE. Pt. has no calf pain noted. Pt. has no pitting edema, but has a 6cm difference at mid patella. NEURO: Normal throughout. ROM: L knee 0-0-94deg. tightness in BLEs. MMT: RLE: knee: ext 32.3#, flexion 23.9#; hip: flexion 21.3#, abd 18#. LLE: knee: ext 0#, flexion 5#, hip: flexion 4#, abd 4# GAIT: Pt. ambulates with FWW. Pt. has good tolerance. Pt. tends to carry her walker rather than properly use it. Balance/Special Test Scores TUG Test Time Seconds: 17.8 30 Second Chair Rise Test Seconds: 7 WOMAC Total Score: 48 WOMAC Percentatge: 50.0000 Goals Goal 1:: LTG: Pt. to be I with HEP. Goal Time Frame: 4-6 Weeks Goal 2:: LTG: Pt. to have increased L knee ROM to 0-0-120deg allowing for increased ability to complete all functional mobility. Goal Time Frame: 4-6 Weeks Goal 3:: LTG: Pt. to have symmetrical strength between BLEs. Goal Time Frame: 6-8 Weeks Goal 4:: LTG: Pt. to ambulate with normal gait pattern without AD without increase in symptoms. Goal Time Frame: 4-6 Weeks Goal 5:: LTG: Pt. to complete TUG with time less than 10sec without AD. Goal Time Frame: 4-6 Weeks Goal 6:: LTG: Pt. to complete stair negotiation with 1 HR with reciprocal pattern. Goal Time Frame: 6-8 Weeks Rehabilitation Potential Physical Therapy Diagnosis: Pt. has signs and symptoms consistent with L TKA, DOS 12/26/24. Pt. has marked hypomobility, weakness, increased pain and difficulty with functional mobility. Rehabilitation Potential: Excellent Anticipated Interventions Patient/Client Instruction: Educate patient on: Condition, Plan of Care, Risk Factors and Benefits of Fitness Program For the Purpose of:: To improve health and function, To foster healthy habits, To improve decision making, To facilitate caregiver knowledge, To improve self management, To prevent re-injury and To improve ability to perform tasks related to life management Therapeutic Exercise to Include: Strength training, Power training, Endurance training, Balance training, Flexibilty training, Gait and locomotor training, Passive ROM and Active ROM For the Purpose of:: To decrease pain, To increase ROM, To improve nutrient delivery to tissue, To increase oxygenation perfusion, To improve muscle performance and motor function, To improve ability to perform ADL's and To increase tolerance to activity/condition/position Manual Therapy Techniques to Include: Mobilization and Soft tissue mobilization For the Purpose of:: To decrease pain, To decrease swelling/inflammation, To increase ROM, To improve nutrient delivery to tissue, To increase oxygenation perfusion and To improve muscle performance and motor function IF ES: Yes Cryotherapy (ice pack, ice massage): Yes Vasopneumatic device: Yes For the Purpose of:: To decrease pain, To decrease swelling/inflammation, To increase ROM, To improve nutrient delivery to tissue and To improve muscle per formance and motor function Text: Thank you for the opportunity to evaluate your patient. For Medicare and Medicare HMO plans, please review the plan of care and approve it. It will need to be FAXED BACK to us at [phone] for Medicare purposes. For Medicare only, by signing this I certify the plan of care. Please let me know if there are questions or concerns regarding this plan of care. Physician Signature: Date:
--- NOTE | 2025-03-20 13:10 | HP.PTEVAL2_ITS ---
Patient's Visit Information Visit Information Visit Information: DAT TREADWELL is a 64 year old F referred to Physical Therapy by James Arambula MD with a diagnosis of R TKA, DOS: 03/15/25. Date of Evaluation: 03/20/25 Physical Therapist: Chet Bhakta DPT Visit Plan Frequency: 3x /Week Duration: 6 Weeks Plan: 1) R knee ROM progression to 0-0-120deg. HS stretching. 2) edema control use of ice and vaso 3) gait progression 4) functional strengthening. Pt. had a blister on her medial aspect of her bandage. Pt. to notify surgeon about this. Follow up with patient about it next visit. Subjective Subjective: Pt. is here today for her initial evaluation with diagnosis of R TKA, DOS: 03/15/25. Pt. arrives without AD. Pt. reports having higher levels of pain /10 today, but expected. Pt. is very eager to get away from FWW and decided to not use it. No N/T noted. Pt. is having a trouble with sleeping secondary to pain. Pt. has been stretching at home with good tolerance. Pt. had her of knee replaced earlier this year. Pt. Pt. would like to get back to all working out and recreational activities without limitations. Pain R knee: Intensity: 7 Pain Intensity Range: 4 and 9 Objective Objective: POSTURE: Pt. has decent posture in stance. Slight lack of R TKE. Pt. has increased wt. shift to L side in stance. PALPATION: Pt. has bandage in place. Pt. does have what looks like a blister along the medial line of the bandage. NEURO: normal throughout BLEs. ROM: R knee 0-8-89deg. Tight B HS. Needed increased stretching to get to this point. MMT: R knee: ext 3#, flexion 8#; hip: flexion 0#, abd 5#. GAIT: pt. ambulates without AD, but has marked limited knee ROM. Decreased knee ext during stance phase and decreased knee flexion during swing. TUsec no AD. 30sec sit to stand 7 without use of UEs. STAIRS: reciprocal pattern with 2 HR loading LLE only. Goals Goal 1:: LTG: pt be I with HEP. Goal Time Frame: 4-6 Weeks Goal 2:: STG: pt. to have increased ROM of R knee to 0-0-120deg. Goal Time Frame: 2-4 Weeks Goal 3:: LTG: Pt. to have symmetrical BLE strength. Goal Time Frame: 4-6 Weeks Goal 4:: LTG: Pt. to have normal gait pattern with out Ad without increase in R knee pain. Goal Time Frame: 6-8 Weeks Goal 5:: LTG: pt. to have improved TUG score to less than 10seconds. Goal Time Frame: 4-6 Weeks Goal 6:: LTG: Pt. to complete 30sec sit to stand rep to test with at least 15 reps Goal Time Frame: 6-8 Weeks Rehabilitation Potential Physical Therapy Diagnosis: PT. has signs and symptoms consistent with R TKA, DOS: 03/15/25. Pt. has marked hypomobility, weakness, difficulty with gait and increased pain. PT. would benefit from PT to address the above limitations progressing back to all household and recreational activities. Rehabilitation Potential: Excellent Anticipated Interventions Patient/Client Instruction: Educate patient on: Condition, Plan of Care, Risk Factors and Benefits of Fitness Program For the Purpose of:: To foster healthy habits, To improve decision making, To facilitate caregiver knowledge, To improve self management, To prevent re-injury and To improve ability to perform tasks related to life management Therapeutic Exercise to Include: Strength training, Power training, Endurance training, Body mechanics, Flexibilty training, Passive ROM and Active ROM For the Purpose of:: To decrease pain, To increase ROM, To improve nutrient delivery to tissue, To increase oxygenation perfusion, To improve muscle performance and motor function, To improve ability to perform ADL's, To improve health of tissue, To decrease soft tissue restriction, To increase flexibility/ROM, To improve endurance, To improve balance and To improve safety with gait Manual Therapy Techniques to Include: Scar massage, Mobilization and Passive ROM For the Purpose of:: To decrease pain, To decrease swelling/inflammation, To increase ROM and To improve nutrient delivery to tissue Cryotherapy (ice pack, ice massage): Yes Vasopneumatic device: Yes For the Purpose of:: To decrease pain, To decrease swelling/inflammation, To increase ROM, To improve nutrient delivery to tissue, To increase oxygenation perfusion, To improve muscle performance and motor function, To improve ability to perform ADL's and To increase tolerance to activity/condition/position text: Thank you for the opportunity to evaluate your patient. For Medicare and Medicare HMO plans, please review the plan of care and approve it. It will need to be FAXED BACK to us at [phone] for Medicare purposes. For Medicare only, by signing this I certify the plan of care. Please let me know if there are questions or concerns regarding this plan of care. Physician Signature: Date:
--- NOTE | 2025-04-15 15:03 | HP.PTRE(2) ---
Re-Evaluation Intro: James Arambula MD, It has been my pleasure to treat DAT TREADWELL over the last 6 visits for R TKA, DOS: 03/15/25. Please see the progress note below for an update on the physical therapy plan of care! Subjective Subjective: Pt. reports having difficulty with sleeping on Tuesday night, due to pain, but was better last night. She is also having R shoulder pain, she is going to see physician in a few weeks. Objective Objective/Function/Assessment: AROM: 0-2-110deg. PROM 0-0-117deg. MMT: RLE: knee: ext 27.3#, flex: 29.9# LLE: knee ext 41.9#, flex: 42. 4# TU.77sec without AD STAIRS: reciprocal pattern without HR. Pt. has a little bit more sore in the R leg with descending. GAIT: Pt. ambulates well without AD. Pt. reports mild increase in symptoms with increased walking. Pt. is overall doing very well. Pt. is walking well and is progressing with her strength. I would like her to have a little better ROM into extension and flexion. and more symmetrical strength. Plan Plan Plan: I am extending POC. x2 a week for 4 weeks to work on strength, ROM and functional mobility. Goals Goals Goal 1:: LTG: pt be I with HEP. Goal Time Frame: 4-6 Weeks Goal 2:: STG: pt. to have increased ROM of R knee to 0-0-120deg. Goal Time Frame: 2-4 Weeks Goal 3:: LTG: Pt. to have symmetrical BLE strength. Goal Time Frame: 4-6 Weeks Goal 4:: LTG: Pt. to have normal gait pattern with out Ad without increase in R knee pain. Goal Time Frame: 6-8 Weeks Goal 5:: LTG: pt. to have improved TUG score to less than 10seconds. Goal Time Frame: 4-6 Weeks Goal 6:: LTG: Pt. to complete 30sec sit to stand rep to test with at least 15 reps Goal Time Frame: 6-8 Weeks Anticipated Interventions Anticipated Interventions Patient/Client Instruction: Educate patient on: Condition, Plan of Care, Risk Factors and Benefits of Fitness Program For the Purpose of:: To foster healthy habits, To improve decision making, To facilitate caregiver knowledge, To improve self management, To prevent re-injury and To improve ability to perform tasks related to life management Therapeutic Exercise to Include: Strength training, Power training, Endurance training, Body mechanics, Flexibilty training, Passive ROM and Active ROM For the Purpose of:: To decrease pain, To increase ROM, To improve nutrient delivery to tissue, To increase oxygenation perfusion, To improve muscle performance and motor function, To improve ability to perform ADL's, To improve health of tissue, To decrease soft tissue restriction, To increase flexibility/ROM, To improve endurance, To improve balance and To improve safety with gait Manual Therapy Techniques to Include: Scar massage, Mobilization and Passive ROM For the Purpose of:: To decrease pain, To decrease swelling/inflammation, To increase ROM and To improve nutrient delivery to tissue Cryotherapy (ice pack, ice massage): Yes Vasopneumatic device: Yes For the Purpose of:: To decrease pain, To decrease swelling/inflammation, To increase ROM, To improve nutrient delivery to tissue, To increase oxygenation perfusion, To improve muscle performance and motor function, To improve ability to perform ADL's and To increase tolerance to activity/condition/position Re-Evaluation Ending Re-evaluation ending: Please do not hesitate to contact me at [phone] by phone or if you have questions or concerns regarding this new plan of care! Sincerely, Chet Bhakta DPT
--- NOTE | 2025-04-25 10:13 | HP.PTCOM ---
PT Communication Note 04/25/[address] James Arambula MD , Sincerely, I talked with patient today. She is to follow up with physician today and she had some concerns to ask him. She is till having tightness in B knees, pain at times that wakes her up at night and she is also having R shoulder pain. I talked to her about her knee stiffness and continue ROM/stretching. She has some increased B knee pain at nights, which I also talked to her about what she is doing during the day as well. Pt. reports increased soreness after doing her stairs multiple times in a day. Mentioned trying to reduce this as well as a progressive walking program rather than being very aggressive. She is having some R shoulder pain, especially with lifting OH and ADLs. This pain has been intermittent over the past few years. Possible RTC pathology vs impingement. Chet Bhakta DPT Contact Information
--- NOTE | 2025-05-29 15:14 | HP.PTDCS(2) ---
Discharge Summary D/C Summary: It has been my pleasure to treat DAT TREADWELL referred by James Arambula MD, with the diagnosis of R TKA, DOS: 03/15/25 for a total of 12 visit(s). Discharge Date: 05/29/25 Please see the following information for a summary of their discharge status. Subjective Subjective: Pt. reports overall doing much better. Pt. pleased. She has started to do some strengthening at local gym with decent tolerance. Overall Improvement % Improvement: 95 Objective Objective/Function/Assessment: ROM: R knee 0-0-118deg. Pt. has mild increase at lateral knee at end range. MMT: Pt. has full strength throughout BLEs. GAIT: normal gait pattern noted. STAIRS: reciprocal pattern no issues noted. TU.1 sec without use of AD 30sec sit to stand rep test: 19 with out use of UEs, Goals Patient Goals: Improve Mobility and Improve Function Goal 1:: LTG: pt be I with HEP. Goal Progress: Goal Met Goal 2:: STG: pt. to have increased ROM of R knee to 0-0-120deg. Goal Progress: Goal Met Goal 3:: LTG: Pt. to have symmetrical BLE strength. Goal Progress: Goal Met Goal 4:: LTG: Pt. to have normal gait pattern with out Ad without increase in R knee pain. Goal Progress: Goal Met Goal 5:: LTG: pt. to have improved TUG score to less than 10seconds. Goal Progress: Goal Met Goal 6:: LTG: Pt. to complete 30sec sit to stand rep to test with at least 15 reps Goal Progress: Progressing Plan Plan: Pt. reports being I with HEP for gym and home exercises. Pt. pleased. Pt. to be DC from PT at this point in time. Pt. is to start personal training soon. She also has some questions about her R shoulder. Pt. to follow up with physician first. D/C Information Discharge Comments: Pt. has met all goals and will be DC from PT at this point in time. d/c sentence: If there are questions or concerns regarding this patient's physical therapy, please feel free to call me at [phone]. Thank you for the referral of this patient. Sincerely, Chet Luther Sipos, DPT Balance/Special Test Scores Improvement % Improvement: 95
--- NOTE | 2025-05-29 15:17 | HP.PT.NRP ---
Patient Information Patient Information: DAT TREADWELL was seen in my office for initial evaluation on 12/28/24. The following Plan of Care was established for this patient: POC Established Initial Frequency: 3x /Week Initial Duration: 6 Weeks Anticipated Interventions Patient/Client Instruction: Educate patient on: Condition, Plan of Care, Risk Factors and Benefits of Fitness Program For the Purpose of:: To improve health and function, To foster healthy habits, To improve decision making, To facilitate caregiver knowledge, To improve self management, To prevent re-injury and To improve ability to perform tasks related to life management Therapeutic Exercise to Include: Strength training, Power training, Endurance training, Balance training, Flexibilty training, Gait and locomotor training, Passive ROM and Active ROM For the Purpose of:: To decrease pain, To increase ROM, To improve nutrient delivery to tissue, To increase oxygenation perfusion, To improve muscle performance and motor function, To improve ability to perform ADL's and To increase tolerance to activity/condition/position Manual Therapy Techniques to Include: Mobilization and Soft tissue mobilization For the Purpose of:: To decrease pain, To decrease swelling/inflammation, To increase ROM, To improve nutrient delivery to tissue, To increase oxygenation perfusion and To improve muscle performance and motor function IF ES: Yes Cryotherapy (ice pack, ice massage): Yes Vasopneumatic device: Yes For the Purpose of:: To decrease pain, To decrease swelling/inflammation, To increase ROM, To improve nutrient delivery to tissue and To improve muscle performance and motor function Last Seen Last Seen: This patient was last seen in our office 01/16/25. Pertinent comments regarding their Physical therapy will appear below: Pt. was DC from PT due to have other knee replaced. Pt. will be seen going forward for her other knee. At this point I will be discontinuing this patient from physical therapy. I would be happy to see this patient again in the future if found appropriate by the physician. Thank you! Chet Bhakta, DPT Balance/Gait/Functional tests Balance/Special Test Scores Lower Extremity Functional Score: 63 TUG Test Time Seconds: 6.1 Tug Test: <10 sec.=free mobile 30 Second Chair Rise Test Seconds: 19 6 Minute Walk Test: 1558feet (normal 1500- 1905) WOMAC Total Score: 48 WOMAC Percentage: 50.0000
== END 2025-05-15 19:00 | disposition home or self-care (01) ==
LOC: PT 15:00
PROVIDERS: PCP Internal Medicine; Referring Provider Orthopaedic Surgery; Visit Provider Orthopaedic Surgery
DX: M17.12 Unilateral primary osteoarthritis, left knee (principal); Z96.652 Presence of left artificial knee joint
CPT/HCPCS: 97016; 97110; 97140; 97161; 97530

== ENCOUNTER → 2025-06-12 | Outpatient (CLI) | payer MEDICARE, OTHER, SELFPAY ==
[2025-06-12 10:07] LABS: Hematocrit 45.4 % (37-47); Hemoglobin 15.0 g/dL (12.0-15.0); Mean Corp Hgb Conc 33.0 g/dL (32-36); Mean Corpuscular Volume 89.0 fL (81-99); Mean Platelet Vol. 10.4 fl (6.2-12.0); Platelet Count 286 K/mm3 (150-450); RBC Distribution Width CV 12.9 % (11.6-14.6); RBC Distribution Width SD 42.4 fl (35.1-43.9); Red Blood Count 5.10 M/mm3 (4.2-5.4); White Blood Count 5.7 K/mm3 (4.4-11.0)
[2025-06-12 10:49] LABS: AST(SGOT) 20 U/L (<=31); Alanine Aminotransfer ALT/SGPT 18 U/L (<=34); Albumin, Serum 4.3 g/dL (3.4-4.8); Alkaline Phosphatase 114 U/L (35-104); Anion Gap 12 (5-15); BUN 16 mg/dL (4-19); BUN/Creat Ratio 22.7 RATIO (10-20); Calcium,Total 9.5 mg/dL (7.6-11.0); Carbon Dioxide 23.3 mmol/L (21.0-32.0); Chloride 105 mmol/L (98-108); Cholesterol 225 mg/dL (<=200); Globulin 3.2 g/dL (2.2-4.2); Glucose 94 mg/dL (70-99); Low Density Lipoprotein Calc. 131 mg/dL; Potassium 3.9 mmol/L (3.3-5.1); Triglycerides 81 mg/dL; Very Low Density Lipoprotein 16 mg/dL (5-40); cholesterol:hdl ratio screen 2.88
== END | disposition home or self-care (01) ==
LOC: MTLAB 08:56
PROVIDERS: PCP Internal Medicine; Referring Provider Internal Medicine; Visit Provider Internal Medicine
DX: E03.9 Hypothyroidism, unspecified (principal)
CPT/HCPCS: 36415; 80053; 80061; 83036; 84439; 84443; 85027

== ENCOUNTER → 2025-10-07 | Outpatient (CLI) | payer MEDICARE, OTHER, SELFPAY ==
[2025-10-07 18:23] LABS: Free T3 2.2 pg/mL (2.18-3.98)
== END | disposition home or self-care (01) ==
LOC: CIMLAB 15:33
PROVIDERS: PCP Internal Medicine; Referring Provider Internal Medicine; Visit Provider Internal Medicine
DX: E03.9 Hypothyroidism, unspecified (principal)
CPT/HCPCS: 36415; 84439; 84443; 84481; 86376; 86800